=== PATIENT | female | born 1940 | race Caucasian/White ===

== ENCOUNTER 2021-11-14 09:23 | Observation (INO) | payer MEDICARE, SELFPAY ==
--- NOTE | ~2021-11-14 | CT_ITS ---
EXAMINATION: CT ANGIOGRAM NECK WITH CONTRAST CT ANGIOGRAM BRAIN WITH CONTRAST CLINICAL INFORMATION: Right-sided weakness. COMPARISON: None available. TECHNIQUE: Test bolus sequences followed by intravenous administration 70 mL of Omnipaque 350. Helical imaging was performed in the axial plane from the thoracic inlet to the skull vertex. Delayed postcontrast imaging of the head was also performed. The data was processed at the seating and mobility technologist workstation for generation of MIP sequences. Angled MIPs and volume rendered reformatted images were also generated at an offline 3D workstation under concurrent supervision. Stenoses are assessed in accordance with NASCET criteria unless otherwise indicated. This CT examination was performed using dose optimization techniques as appropriate, variously including the following: *Automated exposure control *Adjustment of mA and/or kV according to patient size (this includes techniques or standardized protocols for targeted exams where dose is matched to indication/reason for exam; i.e. extremities or head) *Use of iterative reconstruction technique FINDINGS: BRAIN: There is mild chronic microangiopathy. [There is no intracranial hemorrhage, hydrocephalus, extra-axial surface collection, midline shift, or other herniation pattern. Gutierrez to white matter differentiation is diffusely maintained without evidence of an evolved acute territorial infarct. The basilar cisterns are preserved. No significant soft tissue abnormality. No acute osseous abnormality. 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 CERVICAL SOFT TISSUES AND LUNG APICES: Advanced cervical spondylosis. 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 Left vertebral artery is dominant. No significant ostial stenosis is visualized on either side. Both vertebral arteries are widely patent throughout their extracranial cervical course. Right carotid endarterectomy changes. The right internal carotid artery approximately a slightly irregular the remains widely patent. There is atherosclerotic calcification involving the left carotid bifurcation resulting in a 50% stenosis of the distal left common carotid artery and a less than 50% stenosis of the proximal left cervical ICA. BRAIN CTA: There is a -type BIOMEDICAL SCIENTIST on the right side. No focal flow-limiting stenosis nor discrete proximal large artery occlusion. No aneurysm. Timing of the contrast bolus allows assessment of the major dural venous sinuses, which all opacify normally] CT/CT angio head neck stroke IMPRESSION: - No acute intracranial findings. No acute territorial infarcts. There is mild chronic microangiopathy. Favored artifact within the abhi on the noncontrast portion of this CT that would be better assessed with MRI. - No acute arterial occlusions intracranially. - Right carotid endarterectomy changes. The right internal carotid artery approximately a slightly irregular the remains widely patent. There is atherosclerotic calcification involving the left carotid bifurcation resulting in a 50% stenosis of the distal left common carotid artery and a less than 50% stenosis of the proximal left cervical ICA. - Advanced cervical spondylosis. If there is any clinical concern for cervical myelopathy or radiculopathy as a cause for right-sided weakness, a cervical spine MRI could be obtained for further assessment. 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 Discussed with Fariba Jorgensen DO at 9:59 AM on 11/14/2021.
--- NOTE | ~2021-11-14 | CT_ITS ---
EXAMINATION: CT HEAD WITHOUT CONTRAST (STROKE PROTOCOL) CLINICAL INFORMATION: Stroke protocol. Right-sided weakness COMPARISON: None TECHNIQUE: Contiguous axial imaging was performed from the skull base to vertex without intravenous administration of contrast. This CT examination was performed using dose optimization techniques as appropriate, variously including the following: *Automated exposure control *Adjustment of mA and/or kV according to patient size (this includes techniques or standardized protocols for targeted exams where dose is matched to indication/reason for exam; i.e. extremities or head) *Use of iterative reconstruction technique DLP: 762 mGy-cm FINDINGS: There is no evidence of an extra-axial collection. There is no evidence of intra-axial or extra-axial hemorrhage. The ventricles and extra-axial CSF spaces are appropriate. There is mild nonspecific periventricular white matter disease. There is low-attenuation seen in the left side of the brainstem/abhi for example axial image 22 series 2. It is uncertain whether this is related to artifact or a true finding. This could be better evaluated with MRI. Review at bone windows is normal. Paranasal sinuses, mastoid air cells and middle ears are clear. CT/CT head for stroke IMPRESSION: Small area of low attenuation in the left side of the brainstem. It is uncertain whether this is related to artifact. This could be better evaluated by MRI if clinically indicated. This critical result was discussed with Dr. Jorgensen at 945 hours on 11/14/2021. It was ascertained that the content and urgency of the report was understood at the time of direct communication.
--- NOTE | 2021-11-14 09:27 | ECG_ITS ---
Test Reason : stroke Blood Pressure : / mmHG Vent. Rate : 073 BPM Atrial Rate : 073 BPM P-R Int : 172 ms QRS Dur : 078 ms QT Int : 408 ms P-R-T Axes : 033 020 030 degrees QTc Int : 449 ms Normal sinus rhythm Normal ECG No previous ECGs available Referred By: Norma Valero Electronically Signed By:ROLAND HAYNES
[2021-11-14 09:30] LABS: Glucose, Whole Blood 84 mg/dL (60-115)
--- NOTE | 2021-11-14 09:31 | ED.NEUROSD ---
HPI - Neuro Symptoms/Deficit General Chief Complaint: Altered Mental Status Stated Complaint: ? Stroke Time Seen by Provider: 11/14/21 09:26 Source: patient and family Mode of arrival: other (stretcher from main room) Limitations: other (poor historian, attempting to get records from [facility]) History of Present Illness HPI Narrative: left [facility] 10/18 for possible TIA - similar symptoms unsure if she had tPa, son states she had MRIs and was not told she had a stroke. 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) Timing confirmed by: family member Location: speech and right arm History of same: Yes (seems similar to visit at [facility] but told she did not have a stroke) Severity: moderate Quality: weak and improving Relieving factors: rest Exacerbating factors: none Context: sudden onset On Anticoagulants: No Associated symptoms: malaise and weakness Treatments Prior to Arrival: none Related Data Home Medications Medication Instructions Recorded Confirmed aspirin 81 mg tablet,delayed 81 mg PO DAILY 11/14/21 11/14/21 release atorvastatin 80 mg tablet 1 tab PO DAILY 11/14/21 11/14/21 ezetimibe 10 mg tablet 1 tab PO DAILY 11/14/21 11/14/21 lisinopril 40 mg tablet 1 tab PO DAILY 11/14/21 11/14/21 methenamine hippurate 1 gram tablet 1 tab PO BID 11/14/21 11/14/21 metoprolol tartrate 50 mg tablet 1 tab PO BID 11/14/21 11/14/21 nystatin-triamcinolone 100,000 1 appl TOPICAL DAILY 11/14/21 11/14/21 unit/gram-0.1 % topical ointment Allergies Allergy/AdvReac Type Severity Reaction Status Date / Time Penicillins Allergy Rash Verified 11/14/21 10:12 sulfamethoxazole Allergy Unknown Verified 11/14/21 10:12 [From Bactrim] trimethoprim Allergy Rash Verified 11/14/21 10:12 acetaminophen AdvReac Unknown Verified 11/14/21 10:12 azithromycin AdvReac Swelling Verified 11/14/21 10:12 ciprofloxacin AdvReac Swelling Verified 11/14/21 10:12 clarithromycin AdvReac Swelling Verified 11/14/21 10:12 clindamycin AdvReac Swelling Verified 11/14/21 10:12 hydrocodone AdvReac Nausea Verified 11/14/21 10:12 morphine AdvReac Vomiting Verified 11/14/21 10:12 Review of Systems Review of Systems: Constitutional : No Weight loss, No Fever, No Chills, No Fatigue, No Malaise ENT/Mouth : No sore throat, No Rhinorrhea Eyes: No Eye Pain, No Swelling, No Redness Cardiovascular : No Chest Pain, No SOB, No Dyspnea on Exertion, No Orthopnea, No Edema, No Palpitations Respiratory : No Cough, No Sputum, No Wheezing Gastrointestinal : No Nausea, No Vomiting, No Diarrhea, No Constipation, No abdominal Pain, No Hematochezia, No Melena Genitourinary : No Dysuria, No Urinary Frequency, No Hematuria, Musculoskeletal : No joint pain, No Myalgias, No Joint Swelling Skin : No Skin Lesions, No rash Neuro : pos Weakness, No Numbness, No Dizziness, No Headache Psych : No Anxiety/Panic, No Depression Heme/Lymph: No Bruising, No Bleeding,No Lymphadenopathy Endocrine : No Polyuria, No Polydipsia All other systems reviewed and are negative [facility] Past Medical History Attestation statement: The following information was validated with the patient. Medical History Carotid artery stenosis Hiatal hernia HTN (hypertension) TIA (transient ischemic attack) Surgical History (Updated 11/14/21 @ 10:20 by Fariba Jorgensen DO) H/O carotid endarterectomy Previous back surgery Stented coronary artery Social History Social History (Updated 11/14/21 @ 10:20 by Fariba Jorgensen DO) Patient Tobacco Use Status: Never used Tobacco Advance Directives: Yes Advance Directives Information Provided: No Advance Directives on File: No Physical Exam Vital Signs: Vital Signs: Last Vital Signs Temp 98.4 F 11/14/21 09:57 Pulse 71 11/14/21 09:57 Resp 16 11/14/21 09:57 BP 176/76 H 11/14/21 09:57 Pulse Ox 97 11/14/21 09:57 BMI result Body Mass Index 21.9 Appearance: Alert. Oriented X3. Anxious mild acute distress. Eyes: Pupils equal, round and reactive to light. ENT: Pharynx normal. Neck: Normal inspection. Neck supple. CVS: Normal heart rate and rhythm. Pulses normal. Respiratory: No respiratory distress. Breath sounds normal. Abdomen: Soft and nontender. Skin: Skin warm and dry. Normal skin color. Normal skin turgor. Extremities: No lower extremity edema. No calf ttp Neuro: Oriented X 3. RUE 4/5, slurred speech. No sensory deficit. Course Course Course Narrative: speech drastically improved at this time BP 206/96 laying flat given possible carotid stenosis symptoms improving strength intact, NIH initially mild and rapidly improving on arrival I am waiting to hear if she had tPa at [facility] and also may have had recent stroke at [facility] given possible hypoattenuation in abhi given this information and mild NIH score I am holding tPa at this time. symptoms resolved at this time - NIH 0 BP 160 after one dose of labetalol CTA no LVO - no critical carotid artery stenosis symptoms resolved - will admit for TIA patient already took ASA this AM MDM - Neuro Symptoms/Deficit MDM Narrative Medical decision making narrative: 81 yo female with hx of TIA, HTN, carotid artery stenosis s/p R endarterectomy 2018 comes was coming to [facility] today for radiology appointment/neurology post visit at [facility] with recent TIA workup DC 10/18. Son unsure if she had tPa but was told MRI did not show a stroke. At this time she tells us she was told her L carotid is becoming more clogged. Her BS is 84. She was sent immediately to CT scan for stroke protocol. [facility] records obtained. Her symptoms are improving on arrival rapidly. She was placed in supine position until confirmed she did not have critical carotid artery stenosis. Her BP is very high > 200 on arrival given low dose labetalol she states she took all of her medications this AM. Lab Data Result diagrams: 11/14/21 09:30 11/14/21 09:30 Labs: Lab Results 11/14/21 11/14/21 11/14/21 Range/Units 09: 09:30 09:30 WBC 7.3 (4.8-10.8) X10*3/uL RBC 4.00 L (4.20-5.50) X10*6/uL Hgb 12.9 (12.0-16.0) g/dl Hct 38.4 (37.0-47.0) % MCV 96.0 (80.0-98.0) fL MCH 32.3 (27.0-33.0) pg MCHC 33.6 (31.0-35.0) g/dl RDW 12.8 (11.0-16.0) % Plt Count 241 (160-400) X10*3/uL MPV 9.9 (9.4-12.3) fL Immature Gran % (Auto) 0.3 (0.0-0.4) % Neut % (Auto) 63.3 (45-73) % Lymph % (Auto) 21.1 (20-40) % Colbert % (Auto) 9.8 (2-11) % Eos % (Auto) 5.1 H (0-4) % Baso % (Auto) 0.4 (0-2) % Lymph # (Auto) 1.5 (1.2-4.9) X10*3/uL Colbert # (Auto) 0.7 (0.1-1.2) X10*3/uL Eos # (Auto) 0.4 (0.0-0.4) X10*3/uL Baso # (Auto) 0.0 (0.0-0.2) X10*3/uL Abs Immat Gran (auto) 0.02 (0.00-0.03) X10*3/uL Absolute Neuts (auto) 4.6 (2.0-8.3) x10*3/uL Absolute Nucleated RBC 0.000 (0.0-0.012) X10*3/uL Nucleated RBC % (auto) 0.0 (0.0-0.2) /100WBC PT (9.9-13.0) SEC Whole Blood PT (11.1-13.5) sec INR (0.9-1.1) Whole Blood INR (0.9-1.1) APTT (24.1-38.0) SEC Sodium 141 (135-145) mmol/L Potassium 4.1 (3.3-5.1) mmol/L Chloride 107 (96-108) mmol/L Carbon Dioxide 28 (22-29) mmol/L Anion Gap 10 L (12-20) BUN 12 (9-16) mg/dL Creatinine 0.80 (0.5-1.4) mg/dL Estim Creat Clear Calc TNP Estimated GFR > 60 POC Glucose 84 (60-115) mg/dL Random Glucose 85 (60-115) mg/dL Calcium 9.9 (8.4-10.2) mg/dL Magnesium 1.9 (1.6-2.6) mg/dL Total Bilirubin 0.9 (0.0-1.0) mg/dL Direct Bilirubin 0.4 (0.0-0.5) mg/dL AST 22 (5-31) U/L ALT 17 (0-31) U/L Alkaline Phosphatase 74 (39-117) U/L Troponin I High Sens (<3.5-17.0) ng/L Total Protein 6.8 (6.5-8.0) g/dL Albumin 3.9 (3.5-5.0) g/dL Urine Color Urine Appearance Urine pH (5.0-8.0) Ur Specific [place] (1.005-1.025) Urine Protein (NEG-TRACE) MG/DL Urine Glucose (UA) (NEG) MG/DL Urine Ketones (NEG) MG/DL Urine Blood (NEG) Urine Nitrite (NEG) Ur Leukocyte Esterase (NEG) COVID-19 (LIZY) (Negative) COVID-19 Clin Com 11/14/21 11/14/21 11/14/21 Range/Units 09:30 09:30 09:32 WBC (4.8-10.8) X10*3/uL RBC (4.20-5.50) X10*6/uL Hgb (12.0-16.0) g/dl Hct (37.0-47.0) % MCV (80.0-98.0) fL MCH (27.0-33.0) pg MCHC (31.0-35.0) g/dl RDW (11.0-16.0) % Plt Count (160-400) X10*3/uL MPV (9.4-12.3) fL Immature Gran % (Auto) (0.0-0.4) % Neut % (Auto) (45-73) % Lymph % (Auto) (20-40) % Colbert % (Auto) (2-11) % Eos % (Auto) (0-4) % Baso % (Auto) (0-2) % Lymph # (Auto) (1.2-4.9) X10*3/uL Colbert # (Auto) (0.1-1.2) X10*3/uL Eos # (Auto) (0.0-0.4) X10*3/uL Baso # (Auto) (0.0-0.2) X10*3/uL Abs Immat Gran (auto) (0.00-0.03) X10*3/uL Absolute Neuts (auto) (2.0-8.3) x10*3/uL Absolute Nucleated RBC (0.0-0.012) X10*3/uL Nucleated RBC % (auto) (0.0-0.2) /100WBC PT 12.1 (9.9-13.0) SEC Whole Blood PT 12.2 (11.1-13.5) sec INR 1.1 (0.9-1.1) Whole Blood INR 1.0 (0.9-1.1) APTT 31.7 (24.1-38.0) SEC Sodium (135-145) mmol/L Potassium (3.3-5.1) mmol/L Chloride (96-108) mmol/L Carbon Dioxide (22-29) mmol/L Anion Gap (12-20) BUN (9-16) mg/dL Creatinine (0.5-1.4) mg/dL Estim Creat Clear Calc Estimated GFR POC Glucose (60-115) mg/dL Random Glucose (60-115) mg/dL Calcium (8.4-10.2) mg/dL Magnesium (1.6-2.6) mg/dL Total Bilirubin (0.0-1.0) mg/dL Direct Bilirubin (0.0-0.5) mg/dL AST (5-31) U/L ALT (0-31) U/L Alkaline Phosphatase (39-117) U/L Troponin I High Sens < 3.5 (<3.5-17.0) ng/L Total Protein (6.5-8.0) g/dL Albumin (3.5-5.0) g/dL Urine Color Urine Appearance Urine pH (5.0-8.0) Ur Specific [place] (1.005-1.025) Urine Protein (NEG-TRACE) MG/DL Urine Glucose (UA) (NEG) MG/DL Urine Ketones (NEG) MG/DL Urine Blood (NEG) Urine Nitrite (NEG) Ur Leukocyte Esterase (NEG) COVID-19 (LIZY) (Negative) COVID-19 Clin Com 11/14/21 11/14/21 Range/Units 10:05 10:33 WBC (4.8-10.8) X10*3/uL RBC (4.20-5.50) X10*6/uL Hgb (12.0-16.0) g/dl Hct (37.0-47.0) % MCV (80.0-98.0) fL MCH (27.0-33.0) pg MCHC (31.0-35.0) g/dl RDW (11.0-16.0) % Plt Count (160-400) X10*3/uL MPV (9.4-12.3) fL Immature Gran % (Auto) (0.0-0.4) % Neut % (Auto) (45-73) % Lymph % (Auto) (20-40) % Colbert % (Auto) (2-11) % Eos % (Auto) (0-4) % Baso % (Auto) (0-2) % Lymph # (Auto) (1.2-4.9) X10*3/uL Colbert # (Auto) (0.1-1.2) X10*3/uL Eos # (Auto) (0.0-0.4) X10*3/uL Baso # (Auto) (0.0-0.2) X10*3/uL Abs Immat Gran (auto) (0.00-0.03) X10*3/uL Absolute Neuts (auto) (2.0-8.3) x10*3/uL Absolute Nucleated RBC (0.0-0.012) X10*3/uL Nucleated RBC % (auto) (0.0-0.2) /100WBC PT (9.9-13.0) SEC Whole Blood PT (11.1-13.5) sec INR (0.9-1.1) Whole Blood INR (0.9-1.1) APTT (24.1-38.0) SEC Sodium (135-145) mmol/L Potassium (3.3-5.1) mmol/L Chloride (96-108) mmol/L Carbon Dioxide (22-29) mmol/L Anion Gap (12-20) BUN (9-16) mg/dL Creatinine (0.5-1.4) mg/dL Estim Creat Clear Calc Estimated GFR POC Glucose (60-115) mg/dL Random Glucose (60-115) mg/dL Calcium (8.4-10.2) mg/dL Magnesium (1.6-2.6) mg/dL Total Bilirubin (0.0-1.0) mg/dL Direct Bilirubin (0.0-0.5) mg/dL AST (5-31) U/L ALT (0-31) U/L Alkaline Phosphatase (39-117) U/L Troponin I High Sens (<3.5-17.0) ng/L Total Protein (6.5-8.0) g/dL Albumin (3.5-5.0) g/dL Urine Color STRAW Urine Appearance CLEAR Urine pH 6.5 (5.0-8.0) Ur Specific [place] <= 1.005 (1.005-1.025) Urine Protein NEG (NEG-TRACE) MG/DL Urine Glucose (UA) NEG (NEG) MG/DL Urine Ketones NEG (NEG) MG/DL Urine Blood NEG (NEG) Urine Nitrite NEG (NEG) Ur Leukocyte Esterase NEG (NEG) COVID-19 (LIZY) Negative (Negative) COVID-19 Clin Com See Note ECG Data Attestation: I personally reviewed and interpreted this ECG as follows: ECG interpretation date: 11/14/21 ECG interpretation time: 10:13 Interpretation: Rate: 73 Rhythm: NSR Roxana: normal Normal P waves. Normal TAYLOR. Normal QRS complex. ST T wave : normal no CHIN qTC: normal prior studies: no acute ischemia The study has been interpreted contemporaneously by me. NIH Stroke Scale Internal: Initial- Upon Arrival Level of Consciousness: Alert Level of Consciousness Questions: Answers both questions correctly Level of Consciousness Commands: Performs both tasks correctly Best Gaze: Normal Visual: No visual loss Facial Palsy: Normal Motor Arm (Right): Drift Motor Arm (Left): No drift Motor Leg (Right): No drift Motor Leg (Left): No drift Limb Ataxia: Absent Sensory: Normal Best Language: No aphasia Dysarthia: Severe dysarthria Extinction and Inattention: No abnormality Score: 3 Critical Care Time Critical Care Time Critical Care Time: Yes Total Critical Care Time: 45 Attestation: review of records, stroke protocol, IV labetalol, rapid reassessments, admission I attest to this time spent taking care of the patient Discharge Plan Discharge Clinical Impression: Brain TIA HTN (hypertension) Qualifiers: Hypertension type: unspecified Qualified Code(s): I10 - Essential (primary) hypertension Patient Disposition: Admitted As Inpatient
[2021-11-14 09:36] LABS: Prothrombin Time Whole Bld POC 12.2 sec (11.1-13.5)
[2021-11-14 09:40] LABS: MANUAL DIFF FLAG NO
[2021-11-14 09:42] LABS: Basophils Percent Auto 0.4 % (0-2); Eosinophils Absolute Auto 0.4 X10*3/uL (0.0-0.4); Eosinophils Percent Auto 5.1 % (0-4); Hematocrit 38.4 % (37.0-47.0); Hemoglobin 12.9 g/dl (12.0-16.0); Imm Gran Abs Auto 0.02 X10*3/uL (0.00-0.03); Imm Gran Pct Auto 0.3 % (0.0-0.4); Lymphocytes Absolute Auto 1.5 X10*3/uL (1.2-4.9); Lymphocytes Percent Auto 21.1 % (20-40); Mean Corpuscular HGB Conc 33.6 g/dl (31.0-35.0); Mean Corpuscular Hemoglobin 32.3 pg (27.0-33.0); Mean Platelet Volume 9.9 fL (9.4-12.3); Monocytes Absolute Auto 0.7 X10*3/uL (0.1-1.2); Monocytes Percent Auto 9.8 % (2-11); Neutrophils Absolute Auto 4.6 x10*3/uL (2.0-8.3); Neutrophils Percent Auto 63.3 % (45-73); Platelet Count 241 X10*3/uL (160-400); Red Cell Distribution Width 12.8 % (11.0-16.0); White Blood Count 7.3 X10*3/uL (4.8-10.8)
[2021-11-14] MEDS: 0.9 % Sodium Chloride 1,000 ML 999 ML IV (09:47)
[2021-11-14] MEDS: Labetalol HCL 100 MG/20 ML VIAL 10 MG IVPUSH (09:47)
[2021-11-14 09:52] LABS: INTERNATIONAL NORM RATIO 1.1 (0.9-1.1); Prothrombin Time 12.1 SEC (9.9-13.0)
[2021-11-14 09:54] LABS: Partial Thromboplastin Time 31.7 SEC (24.1-38.0)
[2021-11-14 09:57] VITALS: BP 176/76; PULSE 71; RESP 16; TEMP 36.9; O2SAT 97; BMI 21.9
[2021-11-14 09:58] LABS: Alanine Aminotransferase 17 U/L (0-31); Albumin Level 3.9 g/dL (3.5-5.0); Alkaline Phosphatase 74 U/L (39-117); Anion Gap 10 (12-20); Aspartate Amino Transferase 22 U/L (5-31); Bilirubin Direct 0.4 mg/dL (0.0-0.5); Bilirubin Total 0.9 mg/dL (0.0-1.0); Blood Urea Nitrogen 12 mg/dL (9-16); Calcium 9.9 mg/dL (8.4-10.2); Carbon Dioxide 28 mmol/L (22-29); Chloride 107 mmol/L (96-108); Estimated Glomerular Filt Rate > 60; Glucose Random 85 mg/dL (60-115); Magnesium 1.9 mg/dL (1.6-2.6); Potassium 4.1 mmol/L (3.3-5.1); Sodium 141 mmol/L (135-145); Total Protein 6.8 g/dL (6.5-8.0)
[2021-11-14 10:01] LABS: Troponin-I High Sensitivity < 3.5 ng/L (<3.5-17.0)
--- NOTE | 2021-11-14 10:17 | PC.NURSE ---
Patient arrived to ER via outpatient response after arriving and having slurred speech/facial droop. Son at bedside reporting similar thing the month before. patient brought in for immediate CT scan. IV established by Anita ALCAZAR. Patient found to be hypertensive- 210/99 and 200/91. Hung NS 1L and medicated with Lobetalol per Dr. Jorgensen. patient tolerated well and pressure improved to 164/78. HR- 71. Patient moved form CT scan to room, remained laying flat. Alert and oriented, speech improved at this time. Skin PWD. On cardiac specialist NSR. Will continue to monitor.
--- NOTE | 2021-11-14 10:24 | MHC.STROKE ---
ARRIVED TO ED AT 0923, PATIENT HAD AN APPOINTMENT WITH DR. MATTA AN OP. COLLAPSED IN [facility] AND DIRECTED TO ED. STROKE PROTOCOL ACTIVATED. CTH, NO BLEED, CTA NO LVO. PATIENT HAS NEVER BEEN SEEN AT [facility]. OBTAINED SOME RECORDS FROM [facility], SHE WAS THERE 09/11/21-09/12/21. FOR SYNCOPE. RECORDS REVIEWED. PMH: CAD WITH STENT, BRADYCARDIA. CAROTID DISEASE, HTN, HLD, ANEMIA, GI BLEED, TIA, MEDICATION LIST INCLUDED IN RECORDS, ON ANTIHYPERTENSIVES, STATIN, ASPIRIN, ETC. THE SON RELAYED INFORMATION THAT HER MEDICATIONS HAVE BEEN CHANGED. AFTER THE STAY AT [facility], 3 WEEKS LATER SHE WAS ADMITTED TO [facility] AND I CONFIRMED WITH THE PROFESSIONAL NURSE THERE THAT SHE DID NOT RECEIVE TPA-ALTEPLASE AND HER MRI WAS NEGATIVE. WE ARE OBTAINING ADDITIONAL RECORDS FROM [facility]. I PROVIDED EDUCATION AND TO THE PATIENT AND HER SON HARLEY. I REVIEWED THE PLAN OF CARE AND GAVE THEM DR. MATTA'S OFFICE NUMBER AND THEY WILL NEED TO MAKE ANOTHER APPOINTMENT. UNSURE IF SHE WILL BE ADMITTED AT THIS TIME. DR HOANG IS REVIEWING THIS INFORMATION.
[2021-11-14 10:31] LABS: COVID-19 Test Negative (Negative); IDNOW Serial# 16C4AD1C
[2021-11-14 10:40] LABS: Appearance Urine CLEAR; Color Urine STRAW; Glucose Urine UA NEG (NEG); Leukocyte Esterase Urine NEG (NEG); Nitrite Urine NEG (NEG); PH 6.5 (5.0-8.0); Specific Gravity - Urine <= 1.005 (1.005-1.025); Urine Blood NEG (NEG); Urine Ketones NEG (NEG); Urine Protein NEG (NEG-TRACE)
--- NOTE | 2021-11-14 11:09 | PHA.MEDREC ---
Pharmacy Consult ? Medication Reconciliation Pharmacy has completed the medication reconciliation. No remarkable issues. Shy Jackson, AmyD
[2021-11-14 13:23] VITALS: BP 172/68; PULSE 57; RESP 16; O2SAT 97
--- NOTE | 2021-11-14 15:03 | PM.IMHP ---
History of Present Illness Date of Service: 11/14/21 Chief Complaint: right sided weakness, facial droop, dysarthria 81F pmh carotid stenosis, tias, presneted with right sided weakness, facial droop, and dysarthria. patient had been waiting to see neuro for outpaitent appt when she had onset of sudded right sided weakness, numbness, slurred speech. this was similar to several previous episdes ( for which her appointment was for). [place] [facility] [place], MRI which were negative, echo which showed diasotlic dysfunciton. CTA neck with 60% occulsion of LICA, 0% right (s/p CEA). patients symptoms quickly resolved. CTA was negative. denies chest pain, sob, fever, chills. she did report some headache with previous episdoes, though not this time. Review of Systems Review of Systems: Constitutional: Denies fever, denies Chills Eyes: denies blurry vision ENT: denies sore throat CVS: denies chest pain Respiratory: Denies dyspnea GI: no abdominal pain : denies dysuria MSK: denies neck pain Skin: denies rash Neuro: see hpi Psych: denies suicidal ideation Endocrine: denies heat/cold intolerance Hematologic: denies easy bleeding Allergy: denies hives [facility] Medical History CAD (coronary artery disease) Carotid artery stenosis Chronic diastolic (congestive) heart failure Hiatal hernia HTN (hypertension) S/p bare metal coronary artery stent TIA (transient ischemic attack) Family History Mother CAD (coronary artery disease) Father CAD (coronary artery disease) Surgical History H/O carotid endarterectomy Previous back surgery Stented coronary artery Social History Alcohol intake: never Patient Tobacco Use Status: Never used Tobacco Use of substances other than those prescribed or required for medical reasons: No Advance Directives: Yes Advance Directives Information Provided: No Advance Directives on File: Yes Advance Directives Date on File: 11/14/21 Meds Allergies Allergy/AdvReac Type Severity Reaction Status Date / Time Penicillins Allergy Rash Verified 11/14/21 10:12 sulfamethoxazole Allergy Unknown Verified 11/14/21 10:12 [From Bactrim] trimethoprim Allergy Rash Verified 11/14/21 10:12 acetaminophen AdvReac Unknown Verified 11/14/21 10:12 azithromycin AdvReac Swelling Verified 11/14/21 10:12 ciprofloxacin AdvReac Swelling Verified 11/14/21 10:12 clarithromycin AdvReac Swelling Verified 11/14/21 10:12 clindamycin AdvReac Swelling Verified 11/14/21 10:12 hydrocodone AdvReac Nausea Verified 11/14/21 10:12 morphine AdvReac Vomiting Verified 11/14/21 10:12 Active Medications: Current Medications Acetaminophen (Acetaminophen 325 Mg Tablet) 650 mg PO Q6H PRN PRN Reason: Pain, Mild (Pain Scale 1-3) Aspirin (Aspirin Enteric Coated 81 Mg Tablet.) 81 mg PO DAILY KATELYN Atorvastatin Calcium (Atorvastatin Calcium 80 Mg Tablet) 80 mg PO DAILY KATELYN Ezetimibe (Ezetimibe 10 Mg Tablet) 10 mg PO DAILY KATELYN Enoxaparin Sodium (Enoxaparin Sodium 40 Mg/0.4 Ml Syringe) 40 mg SUBCUT DAILY KATELYN Metoprolol Tartrate (Metoprolol Tartrate 50 Mg Tablet) 50 mg PO BID KATELYN; Protocol Non-Formulary Medication (Methenamine Hippurate) 1 tab PO BID KATELYN Nystatin/Triamcinolone Acetonide (Nystatin/Triamcinolone Oint 15 Gm Tube) 1 appl TOPICAL DAILY KATELYN; Protocol Pharmacy Consult (Consult Rx Perform Med Rec) 1 each MISCELLANE ONCE PRN PRN Reason: Consult order Home Medications Medication Instructions Recorded Confirmed Last Taken Type aspirin 81 mg tablet,delayed 81 mg PO DAILY 11/14/21 11/14/21 11/14/21 History release atorvastatin 80 mg tablet 1 tab PO DAILY 11/14/21 11/14/21 11/14/21 History ezetimibe 10 mg tablet 1 tab PO DAILY 11/14/21 11/14/21 11/14/21 History lisinopril 40 mg tablet 1 tab PO DAILY 11/14/21 11/14/21 11/14/21 History methenamine hippurate 1 gram tablet 1 tab PO BID 11/14/21 11/14/21 11/14/21 History metoprolol tartrate 50 mg tablet 1 tab PO BID 11/14/21 11/14/21 11/14/21 History nystatin-triamcinolone 100,000 1 appl TOPICAL DAILY 11/14/21 11/14/21 Unknown History unit/gram-0.1 % topical ointment Physical Exam Vital Signs and Narrative: Vital Signs: Last Vital Signs Temp 98.4 F 11/14/21 09:57 Pulse 57 11/14/21 13:23 Resp 16 11/14/21 13:23 BP 172/68 H 11/14/21 13:23 Pulse Ox 97 11/14/21 13:23 BMI result Body Mass Index 21.9 General: no acute distress HEENT: atraumatic Neck: normal to visual inspection CVS: S1, S2, RRR Resp: CTA bilateral Chest: non tender GI: soft, non tender, non distended : no CVA tenderness Skin: no rashes Extremities: no edema Neuro: Oriented X3, grossly intact Psych: cooperative Results Labs CBC and Chem 7: 11/14/21 09:30 11/14/21 09:30 Labs: Laboratory Results - last 24 hr 11/14/21 11/14/21 11/14/21 09:27 09:30 09:30 MCV 96.0 MCH 32.3 MCHC 33.6 RDW 12.8 Plt Count 241 MPV 9.9 Immature Gran % (Auto) 0.3 Neut % (Auto) 63.3 Lymph % (Auto) 21.1 [place] % (Auto) 9.8 Eos % (Auto) 5.1 H Baso % (Auto) 0.4 Lymph # (Auto) 1.5 [place] # (Auto) 0.7 Eos # (Auto) 0.4 Baso # (Auto) 0.0 Abs Immat Gran (auto) 0.02 Absolute Neuts (auto) 4.6 Absolute Nucleated RBC 0.000 Nucleated RBC % (auto) 0.0 PT Whole Blood PT INR Whole Blood INR APTT Anion Gap 10 L Estim Creat Clear Calc TNP Estimated GFR > 60 POC Glucose 84 Random Glucose 85 Calcium 9.9 Magnesium 1.9 Total Bilirubin 0.9 Direct Bilirubin 0.4 AST 22 ALT 17 Alkaline Phosphatase 74 Troponin I High Sens Total Protein 6.8 Albumin 3.9 Urine Color Urine Appearance Urine pH Ur Specific [place] Urine Protein Urine Glucose (UA) Urine Ketones Urine Blood Urine Nitrite Ur Leukocyte Esterase COVID-19 (LIZY) COVID-19 Clin Com 11/14/21 11/14/21 11/14/21 09:30 09:30 09:32 MCV MCH MCHC RDW Plt Count MPV Immature Gran % (Auto) Neut % (Auto) Lymph % (Auto) [place] % (Auto) Eos % (Auto) Baso % (Auto) Lymph # (Auto) [place] # (Auto) Eos # (Auto) Baso # (Auto) Abs Immat Gran (auto) Absolute Neuts (auto) Absolute Nucleated RBC Nucleated RBC % (auto) PT 12.1 Whole Blood PT 12.2 INR 1.1 Whole Blood INR 1.0 APTT 31.7 Anion Gap Estim Creat Clear Calc Estimated GFR POC Glucose Random Glucose Calcium Magnesium Total Bilirubin Direct Bilirubin AST ALT Alkaline Phosphatase Troponin I High Sens < 3.5 Total Protein Albumin Urine Color Urine Appearance Urine pH Ur Specific [place] Urine Protein Urine Glucose (UA) Urine Ketones Urine Blood Urine Nitrite Ur Leukocyte Esterase COVID-19 (LIZY) COVID-19 Clin Com 11/14/21 11/14/21 10:05 10:33 MCV MCH MCHC RDW Plt Count MPV Immature Gran % (Auto) Neut % (Auto) Lymph % (Auto) [place] % (Auto) Eos % (Auto) Baso % (Auto) Lymph # (Auto) [place] # (Auto) Eos # (Auto) Baso # (Auto) Abs Immat Gran (auto) Absolute Neuts (auto) Absolute Nucleated RBC Nucleated RBC % (auto) PT Whole Blood PT INR Whole Blood INR APTT Anion Gap Estim Creat Clear Calc Estimated GFR POC Glucose Random Glucose Calcium Magnesium Total Bilirubin Direct Bilirubin AST ALT Alkaline Phosphatase Troponin I High Sens Total Protein Albumin Urine Color STRAW Urine Appearance CLEAR Urine pH 6.5 Ur Specific [place] <= 1.005 Urine Protein NEG Urine Glucose (UA) NEG Urine Ketones NEG Urine Blood NEG Urine Nitrite NEG Ur Leukocyte Esterase NEG COVID-19 (LIZY) Negative COVID-19 Clin Com See Note Imaging Radiologist's Impressions: Impressions Head CT 11/14/21 09:36 IMPRESSION: Small area of low attenuation in the left side of the brainstem. It is uncertain whether this is related to artifact. This could be better evaluated by MRI if clinically indicated. This critical result was discussed with Dr. Jorgensen at 945 hours on 11/14/2021. It was ascertained that the content and urgency of the report was understood at the time of direct communication. Head/Neck CTA 11/14/21 09:44 IMPRESSION: - No acute intracranial findings. No acute territorial infarcts. There is mild chronic microangiopathy. Favored artifact within the abhi on the noncontrast portion of this CT that would be better assessed with MRI. - No acute arterial occlusions intracranially. - Right carotid endarterectomy changes. The right internal carotid artery approximately a slightly irregular the remains widely patent. There is atherosclerotic calcification involving the left carotid bifurcation resulting in a 50% stenosis of the distal left common carotid artery and a less than 50% stenosis of the proximal left cervical ICA. - Advanced cervical spondylosis. If there is any clinical concern for cervical myelopathy or radiculopathy as a cause for right-sided weakness, a cervical spine MRI could be obtained for further assessment. 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 Discussed with Fariba Jorgensen DO at 9:59 AM on 11/14/2021. 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
--- NOTE | 2021-11-14 15:06 | PC.NURSE ---
Patient resting on stretcher with son at bedside. patient states she feels like she is back to baseline. Patient is alert and oriented. Speech is clear, no facial droop noted. Respirations regular and even. Skin PWD. Patient up to the commode with one assist. Will continue to monitor. Plan is for admission.
--- NOTE | 2021-11-14 15:31 | P.CNNE_ITS ---
History of Present Illness Data of Consult Service Date: 11/14/21 Primary Care Provider: Karon Dave MD [facility] Reason for consult: Question stroke 81 years old woman who used to have migraine headaches in her 30s. She also had history of carotid disease status post right carotid endarterectomy, coronary artery disease and hypertension who recently was admitted in [facility] after an episode that she thought ws a minor stroke. in fact she had at least 2 more episodes of similar kind. During each episode she remember having numbness on right side of her body, which slowly spread it to involve her face and rest of the body in few minutes and then she also remembered having a headache that was not very severe. Last time headache lasted for few hours per there was also little bit of mental confusion as she noted that when she arrived home she missed her home and drove further and then came back and entered into her garage. Aside from this she had an episode in a sabianist when she was michael ding for a few minutes after which something happened to her. Apparently she fell down and passed out momentarily there was no convulsion and that episode was different from previous episodes. After this episode her director field services discontinued the medicine. According to her son, workup in [facility] was negative for stroke. Review of Systems Review of Systems: No recent cold or flu-like illness per [facility] Past Medical History Medical History CAD (coronary artery disease) Carotid artery stenosis Chronic diastolic (congestive) heart failure Hiatal hernia HTN (hypertension) S/p bare metal coronary artery stent TIA (transient ischemic attack) Family History Family History Mother CAD (coronary artery disease) Father CAD (coronary artery disease) Surgical History Surgical History H/O carotid endarterectomy Previous back surgery Stented coronary artery Social History Social History Alcohol intake: never Patient Tobacco Use Status: Never used Tobacco Use of substances other than those prescribed or required for medical reasons: No Advance Directives: Yes Advance Directives Information Provided: No Advance Directives on File: Yes Advance Directives Date on File: 11/14/21 Meds Allergies Allergy/AdvReac Type Severity Reaction Status Date / Time Penicillins Allergy Rash Verified 11/14/21 10:12 sulfamethoxazole Allergy Unknown Verified 11/14/21 10:12 [From Bactrim] trimethoprim Allergy Rash Verified 11/14/21 10:12 acetaminophen AdvReac Unknown Verified 11/14/21 10:12 azithromycin AdvReac Swelling Verified 11/14/21 10:12 ciprofloxacin AdvReac Swelling Verified 11/14/21 10:12 clarithromycin AdvReac Swelling Verified 11/14/21 10:12 clindamycin AdvReac Swelling Verified 11/14/21 10:12 hydrocodone AdvReac Nausea Verified 11/14/21 10:12 morphine AdvReac Vomiting Verified 11/14/21 10:12 Active Medications: Current Medications Acetaminophen (Acetaminophen 325 Mg Tablet) 650 mg PO Q6H PRN PRN Reason: Pain, Mild (Pain Scale 1-3) Aspirin (Aspirin Enteric Coated 81 Mg Tablet.) 81 mg PO DAILY KATELYN Atorvastatin Calcium (Atorvastatin Calcium 80 Mg Tablet) 80 mg PO DAILY KATELYN Ezetimibe (Ezetimibe 10 Mg Tablet) 10 mg PO DAILY KATELYN Enoxaparin Sodium (Enoxaparin Sodium 40 Mg/0.4 Ml Syringe) 40 mg SUBCUT DAILY KATELYN Metoprolol Tartrate (Metoprolol Tartrate 50 Mg Tablet) 50 mg PO BID KATELYN; Prot ocol Non-Formulary Medication (Methenamine Hippurate) 1 tab PO BID KATELYN Nystatin/Triamcinolone Acetonide (Nystatin/Triamcinolone Oint 15 Gm Tube) 1 appl TOPICAL DAILY KATELYN; Protocol Pharmacy Consult (Consult Rx Perform Med Rec) 1 each MISCELLANE ONCE PRN PRN Reason: Consult order Home Medications Medication Instructions Recorded Confirmed Last Taken Type aspirin 81 mg tablet,delayed 81 mg PO DAILY 11/14/21 11/14/21 11/14/21 History release atorvastatin 80 mg tablet 1 tab PO DAILY 11/14/21 11/14/21 11/14/21 History ezetimibe 10 mg tablet 1 tab PO DAILY 11/14/21 11/14/21 11/14/21 History lisinopril 40 mg tablet 1 tab PO DAILY 11/14/21 11/14/21 11/14/21 History methenamine hippurate 1 gram tablet 1 tab PO BID 11/14/21 11/14/21 11/14/21 History metoprolol tartrate 50 mg tablet 1 tab PO BID 11/14/21 11/14/21 11/14/21 History nystatin-triamcinolone 100,000 1 appl TOPICAL DAILY 11/14/21 11/14/21 Unknown History unit/gram-0.1 % topical ointment Physical Exam Vital Signs: Vital Signs: Last Vital Signs Temp 98.4 F 11/14/21 09:57 Pulse 57 11/14/21 13:23 Resp 16 11/14/21 13:23 BP 172/68 H 11/14/21 13:23 Pulse Ox 97 11/14/21 13:23 BMI result Body Mass Index 21.9 Neuro: Other: she was alert and awake with normal spontaneity of speech fluency comprehension and affect. Pupils were round reactive to light. Extraocular muscles were intact. Visual vergara are full to threat. Face was symmetrical. Tongue was midline. There was no pronator drift. [id number] revealed mild bilateral ataxia and [id number]-[id number] testing were normal. she was able to get up and walk in and cautious gait. Speech was normal. Results Labs CBC & Chem 7: 11/14/21 09:30 11/14/21 09:30 Labs: Short CBC 11/14/21 Range/Units 09:30 WBC 7.3 (4.8-10.8) X10*3/uL Hgb 12.9 (12.0-16.0) g/dl Hct 38.4 (37.0-47.0) % Plt Count 241 (160-400) X10*3/uL BMP 11/14/21 09:30 Sodium 141 Potassium 4.1 Chloride 107 Carbon Dioxide 28 BUN 12 Creatinine 0.80 Calcium 9.9 Liver Function 11/14/21 Range/Units 09:30 Total Bilirubin 0.9 (0.0-1.0) mg/dL Direct Bilirubin 0.4 (0.0-0.5) mg/dL AST 22 (5-31) U/L ALT 17 (0-31) U/L Alkaline Phosphatase 74 (39-117) U/L Albumin 3.9 (3.5-5.0) g/dL Urine 11/14/21 Range/Units 10:33 Urine Color STRAW Urine Appearance CLEAR Urine pH 6.5 (5.0-8.0) Ur Specific [place] <= 1.005 (1.005-1.025) Urine Protein NEG (NEG-TRACE) MG/DL Urine Glucose (UA) NEG (NEG) MG/DL CT and CTA of brain and neck did not reveal any significant lesion. Mild atrophy was noted. Assessment and Plan (1) Migraine with aura: Status: Acute 3 episodes that she reported involving right-sided numbness little bit of confusion and headache were more consistent with migraine with aura. She was educated about this condition. As this is happening more frequently, I suggest to start her on topiramate 25 mg at night. These episodes were not suggestive of stroke. Seizure disorder could be considered but overall history was also not suggestive of that. She can make an appointment in my office in few weeks time for follow-up (2) Migraine equivalent syndrome: Status: Acute (3) Syncope and collapse: Status: Acute this is about the episode she had in the sabianist, which probably happen from vasovagal or orthostatic syncope. Again seizure disorder was a possibility but seems less likely. An outpatient EEG can be considered. (4) Carotid disease, bilateral: Status: Acute this is not significant and asymptomatic. I recommend blood pressure management, anti-platelet agent and statin. Procedures Date of Service Date of Service: 11/14/21
[2021-11-14 18:05] VITALS: BP 195/78; PULSE 64; RESP 20; TEMP 36.7; O2SAT 96
[2021-11-14 18:12] VITALS: BP 185/76
--- NOTE | 2021-11-14 18:12 | PC.NURSE ---
Patient alert and oriented x 3. Patient denies headache, dizziness. Patient passed swallow eval. tele: sinus rythym 60's blood pressure 195/78 Dr. Hines notified. Neurology consult is done. MD aware of recommendations. Will continue with plan of care.
--- NOTE | 2021-11-14 18:22 | PM.DS ---
DS: Providers Provider Date of Service: 11/14/21 Date of admission: 11/14/21 14:54 Primary care physician: Karon Dave MD Consults: 11/14/21 14:52 Consult to Neurology Routine Consulting Provider: [facility] Reason for consultation: right facial droop, slurred speech DS: Diagnosis Discharge Diagnosis (1) Migraine with aura: Status: Acute (2) Migraine equivalent syndrome: Status: Acute (3) Syncope and collapse: Status: Acute (4) Carotid disease, bilateral: Status: Acute DS: Summary Hospital Course Hospital Course: from initial hpi:Chief Complaint: right sided weakness, facial droop, dysarthria 81F pmh carotid stenosis, tias, presneted with right sided weakness, facial droop, and dysarthria. patient had been waiting to see neuro for outpaitent appt when she had onset of sudded right sided weakness, numbness, slurred speech. this was similar to several previous episdes ( for which her appointment was for). [place] [facility] [place], [place] which were negative, echo which showed diasotlic dysfunciton. CTA neck with 60% occulsion of LICA, 0% right (s/p CEA). patients symptoms quickly resolved. CTA was negative. denies chest pain, sob, fever, chills. she did report some headache with previous episdoes, though not this time. hospital course: patient was observed for right sided weakness and slurred speech. her imaging was negative. she was seen by neuro who felt this was most consistent with migraine with aura. she will be started on topamax 25mg at bedtime and should follow up outpatient with neuro. bp is elevated, but asymptomatic, will continue with lisinopril, lopressor, should monitor at home and adjust with pcp if needed. discharge diagnosis: migraine with aura CAD carotid artery disease chronic diastolic chf HTN Time Spent with Patient Time attestation: Total time spent providing and/or coordinating discharge services: Discharge coordination time: Greater than 30 minutes Quality: Safe Use of Opioids Does Pt have an Active Cancer Diagnosis on the Problem List?: No Quality: Stroke Does the patient have a stroke diagnosis?: No Physical Exam Vital Signs: Vital Signs: Last Vital Signs Temp 98.0 F 11/14/21 18:05 Pulse 64 04/27/22 18:05 Resp 20 11/14/21 18:05 BP 185/76 H 11/14/21 18:12 Pulse Ox 96 11/14/21 18:05 BMI result Body Mass Index 21.9 General: AO X 2, no acute distress Resp: CTA bilateral, no accessory muscles used CVS: S1,S2,RRR GI: soft, non tender, non distended Neuro: motor grossly intact, alert Psych: appropriate affect, imapired insight DS: Data Data Completed and Pending Labs on day of discharge: Laboratory Results - last 24 hr 11/14/21 11/14/21 11/14/21 09:27 09:30 09:30 WBC 7.3 RBC 4.00 L Hgb 12.9 Hct 38.4 MCV 96.0 MCH 32.3 MCHC 33.6 RDW 12.8 Plt Count 241 MPV 9.9 Immature Gran % (Auto) 0.3 Neut % (Auto) 63.3 Lymph % (Auto) 21.1 [place] % (Auto) 9.8 Eos % (Auto) 5.1 H Baso % (Auto) 0.4 Lymph # (Auto) 1.5 [place] # (Auto) 0.7 Eos # (Auto) 0.4 Baso # (Auto) 0.0 Abs Immat Gran (auto) 0.02 Absolute Neuts (auto) 4.6 Absolute Nucleated RBC 0.000 Nucleated RBC % (auto) 0.0 PT Whole Blood PT INR Whole Blood INR APTT Sodium 141 Potassium 4.1 Chloride 107 Carbon Dioxide 28 Anion Gap 10 L BUN 12 Creatinine 0.80 Estim Creat Clear Calc TNP Estimated GFR > 60 POC Glucose 84 Random Glucose 85 Calcium 9.9 Magnesium 1.9 Total Bilirubin 0.9 Direct Bilirubin 0.4 AST 22 ALT 17 Alkaline Phosphatase 74 Troponin I High Sens Total Protein 6.8 Albumin 3.9 Urine Color Urine Appearance Urine pH Ur Specific [place] Urine Protein Urine Glucose (UA) Urine Ketones Urine Blood Urine Nitrite Ur Leukocyte Esterase COVID-19 (LIZY) COVID-19 Clin Com 11/14/21 11/14/21 11/14/21 09:30 09:30 09:32 WBC RBC Hgb Hct MCV MCH MCHC RDW Plt Count MPV Immature Gran % (Auto) Neut % (Auto) Lymph % (Auto) [place] % (Auto) Eos % (Auto) Baso % (Auto) Lymph # (Auto) [place] # (Auto) Eos # (Auto) Baso # (Auto) Abs Immat Gran (auto) Absolute Neuts (auto) Absolute Nucleated RBC Nucleated RBC % (auto) PT 12.1 Whole Blood PT 12.2 INR 1.1 Whole Blood INR 1.0 APTT 31.7 Sodium Potassium Chloride Carbon Dioxide Anion Gap BUN Creatinine Estim Creat Clear Calc Estimated GFR POC Glucose Random Glucose Calcium Magnesium Total Bilirubin Direct Bilirubin AST ALT Alkaline Phosphatase Troponin I High Sens < 3.5 Total Protein Albumin Urine Color Urine Appearance Urine pH Ur Specific [place] Urine Protein Urine Glucose (UA) Urine Ketones Urine Blood Urine Nitrite Ur Leukocyte Esterase COVID-19 (LIZY) COVID-19 Clin Com 11/14/21 11/14/21 10:05 10:33 WBC RBC Hgb Hct MCV MCH MCHC RDW Plt Count MPV Immature Gran % (Auto) Neut % (Auto) Lymph % (Auto) [place] % (Auto) Eos % (Auto) Baso % (Auto) Lymph # (Auto) [place] # (Auto) Eos # (Auto) Baso # (Auto) Abs Immat Gran (auto) Absolute Neuts (auto) Absolute Nucleated RBC Nucleated RBC % (auto) PT Whole Blood PT INR Whole Blood INR APTT Sodium Potassium Chloride Carbon Dioxide Anion Gap BUN Creatinine Estim Creat Clear Calc Estimated GFR POC Glucose Random Glucose Calcium Magnesium Total Bilirubin Direct Bilirubin AST ALT Alkaline Phosphatase Troponin I High Sens Total Protein Albumin Urine Color STRAW Urine Appearance CLEAR Urine pH 6.5 Ur Specific [place] <= 1.005 Urine Protein NEG Urine Glucose (UA) NEG Urine Ketones NEG Urine Blood NEG Urine Nitrite NEG Ur Leukocyte Esterase NEG COVID-19 (LIZY) Negative COVID-19 Clin Com See Note Discharge Plan Discharge Patient Disposition: Home, Self-Care Discharge Diagnosis: migraine Referrals: Karon Dave MD [Primary Care Provider] - 1 Week Discharge Medications: New topiramate 25 mg Tablet 25 mg PO BEDTIME Qty: 30 0RF Continued atorvastatin 80 mg tablet 1 tab PO DAILY 0RF methenamine hippurate 1 gram tablet 1 tab PO BID 0RF metoprolol tartrate 50 mg tablet 1 tab PO BID 0RF lisinopril 40 mg tablet 1 tab PO DAILY 0RF ezetimibe 10 mg tablet 1 tab PO DAILY 0RF aspirin 81 mg Tablet,Delayed Release (Dr/Ec) 81 mg PO DAILY 0RF nystatin-triamcinolone 100,000-0.1 unit/gram-% ointment 1 appl topical DAILY 0RF Discharge Orders: Discharge Order (Routine); Ordered 11/14/21 Ordered By: Darrell Hines Diet: advance to usual diet Activity on Discharge: As tolerated Stand Alone Forms: Patient Portal Discharge page Care Plan Goals: prevent further episodes Health Concerns: migraine Plan of Treatment: start topamax, continue asa and statin, follow up with neuro Assessment: see above
== END 2021-11-14 18:51 | disposition home or self-care (01) ==
LOC: HO.ED 12:20 → HO.EDOVER 15:13
PROVIDERS: Physician Assistant; Admitting Provider Internal Medicine; Emergency Provider Emergency Medicine; PCP Internal Medicine; Visit Provider Internal Medicine
DX: I50.32 Chronic diastolic (congestive) heart failure (principal); I11.0 Hypertensive heart disease with heart failure; I25.10 Atherosclerotic heart disease of native coronary artery without angina pectoris; G43.109 Migraine with aura, not intractable, without status migrainosus; R55 Syncope and collapse; I77.9 Disorder of arteries and arterioles, unspecified; D16.4 Benign neoplasm of bones of skull and face; M47.812 Spondylosis without myelopathy or radiculopathy, cervical region; Z20.822 Contact with and (suspected) exposure to COVID-19; Z95.5 Presence of coronary angioplasty implant and graft; Z98.890 Other specified postprocedural states; Z88.0 Allergy status to penicillin; Z88.2 Allergy status to sulfonamides; Z88.8 Allergy status to other drugs, medicaments and biological substances; Z79.82 Long term (current) use of aspirin; Z79.899 Other long term (current) drug therapy
CPT/HCPCS: 36415; 70450; 70496; 70498; 80048; 80076; 81003; 82947; 83735; 84484; 85025; 85610; 85730; 87635; 93005; 99219; 99284

== ENCOUNTER 2025-04-20 08:22 | Outpatient (AMB) | payer MEDICARE, SELFPAY ==
--- NOTE | 2025-04-20 08:27 | A.OFFVIS_ITS ---
Intake Visit Reasons: shooting pain on neck/skull Accompanied by: Son Allergies Penicillins Allergy (Verified 04/20/25 08:31) Rash sulfamethoxazole (From Bactrim) Allergy (Verified 04/20/25 08:) Unknown trimethoprim Allergy (Verified 04/20/25 08:31) Rash acetaminophen Adverse Reaction (Verified 04/20/25 08:31) Unknown azithromycin Adverse Reaction (Verified 04/20/25 08:31) Swelling ciprofloxacin Adverse Reaction (Verified 04/20/25 08:) Swelling clarithromycin Adverse Reaction (Verified 04/20/25 08:31) Swelling clindamycin Adverse Reaction (Verified 04/20/25 08:31) Swelling hydrocodone Adverse Reaction (Verified 04/20/25 08:) Nausea morphine Adverse Reaction (Verified 04/20/25 08:) Vomiting Medication List - Last Reconciled 04/20/25 by Jahaira Jain, [place] aspirin 81 mg PO DAILY atorvastatin 1 tab PO DAILY ezetimibe 1 tab PO DAILY hydrochlorothiazide 12.5 mg PO DAILY lisinopril 1 tab PO DAILY lorazepam 0.5 mg PO BEDTIME PRN methenamine hippurate 1 tab PO BID metoprolol tartrate 1 tab PO BID nitroglycerin 0.4 mg sublingual Q5M PRN nystatin-triamcinolone 100,000-0.1 unit/gram-% 1 appl topical DAILY topiramate 25 mg PO BID HPI Comments Details: 85-year-old right-handed woman with moderate amount of multiple bilateral embolic looking ishemic infarcts, 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 She was here with new symptom of shooting pains on the left side of face, which started about 3-4 weeks ago. She gets brief, shooting pains along left lower jaw, and occasionally across cheek, along with some numbness. No specific triggers identified, such as chewing, brushing teeth, or washing face. She notes some increased sensitivity to touch on left side of face. Pain occasionally disrupts sleep. Episodes of pain can happen few times a day, but not every day. Typical headaches are okay. No visual changes. [facility] Medical History CAD (coronary artery disease) Carotid artery stenosis Chronic diastolic (congestive) heart failure Hiatal hernia HTN (hypertension) S/p bare metal coronary artery stent TIA (transient ischemic attack) Surgical History H/O carotid endarterectomy Previous back surgery Stented coronary artery Family History Mother CAD (coronary artery disease) Father CAD (coronary artery disease) Social History Alcohol intake: never Patient Tobacco Use Status: Never used Tobacco Advance Directives Date on File: 11/14/21 Review of Systems Const Denies chills, Denies daytime sleepiness, Denies difficulty sleeping, Denies fatigue, Denies fever(s), Denies frequent falls, Reports headache(s), Denies increased appetite, Denies poor appetite, Denies snoring, Denies weakness, Denies weight gain and Denies weight loss Eyes Denies loss of vision ENT Denies vertigo, Denies dizziness and Reports headache(s) Card Denies chest pain at rest, Denies chest pain with activity, Denies syncope, Denies leg edema and Denies palpitations Resp Denies snoring GI Denies constipation, Denies heartburn, Denies diarrhea and Denies nausea Denies urinary frequency, Denies urinary incontinence and Denies urinary urgency Musc Denies abnormal gait, Denies numbness and Denies tingling Skin/Breast Denies dry skin and Denies rash Neuro Denies abnormal gait, Denies vertigo, Denies dizziness, Denies syncope, Denies frequent falls, Reports headache(s), Denies lack of coordination, Denies loss of vision, Denies memory loss, Denies numbness, Denies restless legs, Denies seizure-like activity, Denies tingling, Denies paresthesias, Denies tremor(s) and Denies weakness Psych Denies anxiety, Denies depression, Denies auditory hallucinations, Denies memory loss, Denies visual hallucinations and Denies suicidal ideation Endo Denies fatigue and Denies palpitations Physical Exam Const Other: General Appearance:? normal, in no acute distress. Skin:? no rashes, no significant birthmarks. Heart:? S1, S2 normal, no murmurs. Lungs:? clear anteriorly and posteriorly. Extremities:? no edema. Psych:? alert, oriented, cognitive function intact, cooperative with exam. Neuro Other: Mental Status:?Normal attention, orientation, memory and affect.? Cranial Nerves:?Pupils are equal, round and reactive to light. External occular muscles are intact. Visual vergara are full. Face is symmetrical. Facial sensations are normal. Tongue is midline. Palate elevates symmetrically. Shoulder shrugging is normal. Hearing to bedside conversation is normal. Motor Examination:?DTRs trace. Sensory Exam:?....? Coordination:?No ataxia,?no titubation.? Gait Exam: Cautious. Cerebellar Signs:?[id number]-[id number] is okay. Extrapyramidal System:?No tremor, rigidity with normal facial expressions.? Pronator Drift:?Not present.? Involuntary Movements:?No tremors seen.? Speech:?Normal.? Results Reviewed Results Reviewed: MRI brain WO at [facility] in Mar 2023: Multiple small b/l ischemic lesions MRI brain WO at [facility] in Sep 2021: multiple distinct b/o small embolic looking ischemic infarcts Routine EEG at [facility] in Sep 2021: intermittent left temp theta slowing CTA brain and neck at [facility] in Oct 2021: MVD, s/p R CEA, 50% L stenosis, advanced cervical spondylosis, left frontal osteoma, 1.3 cm EKG at [facility] in Oct 2021: NSR. Assessment & Plan Assessment & Plan (1) Migraine equivalent syndrome: Code(s): G43.109 - Migraine with aura, not intractable, without status migrainosus Category: Medical Plan: Continue topiramate 25mg 1 tablet twice a day. (2) Migraine with aura: Code(s): G43.109 - Migraine with aura, not intractable, without status migrainosus Category: Medical Qualifiers: Status migrainosus presence: without status migrainosus Intractability: not intractable Qualified Code(s): G43.109 - Migraine with aura, not intractable, without status migrainosus (3) Trigeminal neuralgia: Code(s): G50.0 - Trigeminal neuralgia Category: Medical Plan: Likely trigeminal neuralgia given location (V2, V3 distribution) and nature of pain. Start carbamazepine 100mg 1 tablet at bedtime, use/side effects reviewed. MRI brain W&WO ordered, bring CD of MRI to next appointment for review. Plan . Orders: Orders MR head/brain wo/w con Today G50.0 - Trigeminal neuralgia Medications: New carbamazepine 100 mg PO BEDTIME 30 tabs 1RF 30 days Changed From topiramate 25 mg PO BID To topiramate 25 mg PO BID 180 tabs 1RF 90 days Coding Level of Care Code Est Pt Level 4 (69514) Diagnoses Migraine equivalent syndrome G43.109 Migraine with aura and without status migrainosus, not intractable G43.109 Status migrainosus presence: without status migrainosus Intractability: not intractable Trigeminal neuralgia G50.0
--- OUTSIDE RECORDS SUMMARY | 2025-04-20 08:54 | XMS_ITS | Clinical Summary ---
Author Organization [facility] [address] [place] [address] [place] [phone] Phone Care Team Providers Care Rug Shampooer Name Role Phone Karon Dave MD Primary Care Provider [phone] Allergies Active Allergy Reactions Criticality Noted Date Comments Amlodipine Swelling Medium 01/11/2016 Side effect Azithromycin 03/31/2013 Possibly caused vasculitis Ciprofloxacin 03/31/2013 Possibly caused vasculitis Clarithromycin 03/31/2013 Possibly caused vasculitis Clindamycin 03/31/2013 Possibly caused vasculitis Hydrocodone-Acetaminophe n Nausea And Vomiting 09/30/2005 Morphine Sulfate 09/11/2020 Penicillins Rash 09/30/2005 Sulfamethoxazole-Trimeth oprim Swelling Medium 06/18/2010 Tobramycin 03/31/2013 Possibly caused vasculitis Medications LORazepam (ATIVAN) 0.5 mg tablet TAKE 1 TABLET BY MOUTH EVERY DAY NEEDED ANXIETY 4 Active topiramate (TOPAMAX) 25 mg tablet Take 1 tablet (25 mg total) by mouth 2 (two) times a day. 3 Active nitroglycerin (NITROSTAT) 0.[address] 1 tablet (0.4 mg total) under the tongue every 5 (five) minutes if needed for chest pain. 3 Active methenamine hippurate (HIPREX) 1 gram tablet Take 1 g by mouth 2 Times Daily. 2 Active aspirin 81 mg chewable tablet Chew 1 tablet (81 mg total) 1 (one) time each day. 9 Active potassium chloride (KLOR-CON) 10 mEq CR tablet Take 1 tablet (10 mEq total) by mouth 1 (one) time each day. 90 tablet 1 5 Active metoprolol tartrate (LOPRESSOR) 50 mg tablet TAKE 1 TABLET BY MOUTH TWICE DAILY 180 tablet 1 5 Active lisinopril (PRINIVIL,ZESTR IL) 40 mg tablet TAKE 1 TABLET BY MOUTH ONCE DAILY 90 tablet 1 5 Active ezetimibe (ZETIA) 10 mg tablet Take 1 tablet (10 mg total) by mouth 1 (one) time each day. 90 tablet 1 5 Active atorvastatin (LIPITOR) 80 mg tablet Take 1 tablet (80 mg total) by mouth 1 (one) time each day. 90 tablet 1 5 Active nystatin-triamc inolone (MYCOLOG II) ointment Apply topically 1 (one) time each day. 15 g 1 5 Active hydroCHLOROthia zide 12.5 mg tablet Take 1 tablet (12.5 mg total) by mouth 1 (one) time each day. 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 Pulmonary nodules 06/05/2017 Overview (05/05/2024): Chest CT scan 06/02/2017 Hiatal hernia 07/31/2015 Overview (05/05/2024): Laparoscopic repair paraesophageal hernia, 02/21/2016 Squamous cell skin cancer 10/22/2012 Overview (05/05/2024): SCC 3/12 right cheek (in situ) Carotid stenosis 11/09/2010 Overview (05/05/2024): TIA times 2, Right CEA 7.20 Atherosclerosis of [place] ronary artery of [place] heart without angina pectoris 02/15/2008 Overview (05/05/2024): 85% LAD stenosis, coronary angioplasty, Assessment & Plan (12/20/2024 11:04 AM EDT): Diverticulitis of colon without hemorrhage 05/15 Overview (05/05/2024): refer to chronic blood loss anemia problem. Iron deficiency anemia secondary to blood loss ( chronic) 05/15/2006 Overview (05/05/2024): Microcytic, iron deficiency anemia associated with positive FOBT evaluated 2003. Upper GI endoscopy, colonoscopy, performed 07.16.04. Minimal diverticulosis lower half of the bowel. No other lesions. Duodenal biopsies not obtained. No colon cancer screening necessary until 2013. Hyperlipidemia 01/10/2006 Assessment & Plan (12/20/2024 11:04 AM EDT): Osteoporosis 06/12/2005 Assessment & Plan (12/20/2024 11:04 AM EDT): Primary hypertension 06/12/2005 Assessment & Plan (12/20/2024 11:04 AM EDT): Resolved Problems Problem Noted Date Diagnosed Date Resolved Date Low blood potassium 12/23/2023 06/21/20 24 Encounters Date Type Department Care Team Description 04/11/2025 11:15 AM EDT Office Visit Adult Medicine [address] [phone] Alessandra Jacobsen PA Left-sided face pain (Primary Dx); Refused pneumococcal vaccination 01/25/2025 11:30 AM EDT Treatment Outpatient [facility] - [address] [phone] Justice Mirza, PT Gait abnormality (Primary Dx) 01/20/2025 11:00 AM EDT Treatment Outpatient [facility] - [address] [phone] Marylou Vásquez, TEAM FACILITATOR Gait abnormality (Primary Dx) 01/18/2025 11:30 AM EDT Treatment Outpatient [address] [phone] Marylou Vásquez, TEAM FACILITATOR Gait abnormality (Primary Dx) from Last 3 Months Immunizations Immunization Administration Dates Next Due H1N1 Inj Preservative Free 07/11/2009 Influenza Quadravalent, MDCK , 0.5ml, with preservative (Flucelvax) 6mo and older 06/25/2017 Influenza trivalent, 0.5mL ( Fluad) 65yo and older 04/11/2025,04/04/2023,06/07/2022,05/01,04/12/2020,05/13/2019,04/12/2018 ,05/20/2016,05/05/2015,05/01/2014,04/21,05/06/2012,04/22/2011, 0,06/23/2009 Influenza trivalent, 0.5mL, preservative free (Fluarix; FluLaval; Fluzone) ages 6mo and older (Afluria) 3 years and older 05/20/2016,05/05/2015,05/01/2014,05/18,05/06/2012,04/22/2011,05/04/2010 ,06/23/2009,04/28/2008,04/29/2007,06/20,06/24/2005 Pfizer (ages 12 & older) Biv alent, COVID-19 04/08/2022 Pneumococcal polysaccharide 23 valent (Pneumovax 23) 2yo and older 06/12/2005 RSV, bivalent, protein subun it RSVpreF, 0.5mL, Preservative Free (Arexvy) 50yo and older 08/20/2023 Td Tetanus diptheria (Tdvax) 7yo and older 11/24/2017,02/16/2007 Zoster Live 05/03/2014 Surgical History Surgery Date Site/Laterality Comments OTHER SURGICAL HISTORY 2002 DISKECTOMY LUMBAR SINGLE SP COLONOSCOPY 07/16/2004 negative for +FOBT and anemia ESOPHAGOGASTRODUODENOSCOPY 07/16/2004 : negative for +FOBT and anemia OTHER SURGICAL HISTORY 01/05/2013 sinus surgery, Dr. Briseno TONSILLECTOMY UPPER GASTROINTESTINAL ENDOSCOPY 07/31/2015 7 cm paraesophageal hiatal hernia. COLONOSCOPY 08/02/2015 normal OTHER SURGICAL HISTORY 02/21/2016 Repair paraesophageal hernia CATARACT EXTRACTION 2017 Bilateral OTHER SURGICAL HISTORY 10/11/2009 LAPAROSCOPY COLPOPEXY SUSPENSION VAGINAL APEX; COMMENT: Dr. Ramirez CAROTID ENDARTERECTOMY 02/14/2020 : Dr. Jeong Medical History Medical History Date Comments Osteoporosis, unspecified Iron deficiency anemia secon anselmo to blood loss (chronic) 05/15/2006 Microcytic, iron deficiency anemia associated with positive FOBT evaluated 2003. Upper GI endoscopy, colonoscopy, performed 07.16.04. Minimal diverticulosis lower half of the bowel. No other lesions. Duodenal biopsies not obtained. No colon cancer screening necessary until 2013. Diverticulosis of colon (wit hout mention of hemorrhage) 05/15/2006 refer to chronic blood loss anemia problem. 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 tosis Migraine 06/09/[address] Bennett OZUNAID-19 virus infection 06/09/2023 3 Family History Medical History Relation Name Comments Stroke Brother 1 Coronary artery disease Brother 2 [place]'s Stroke Father Stroke Mother Stroke Sister Breast cancer Neg Hx Colon cancer Neg Hx Ovarian cancer Neg Hx Uterine cancer Neg Hx Relation Name Status Comments Brother 1 Brother 2 Alive Father Maternal Grandfather Maternal Grandmother Mother Paternal Grandfather Paternal Grandmother Sister Social History Tobacco Use Types Packs/Day Years Used Date Smoking Tobacco: Never Smokeless Tobacco: Never Tobacco Cessation:Counseling Given: Not Answered Alcohol Use Standard Drinks/Week Comments No 0 (1 standard drink = 0.6 oz pur e alcohol) Housing Instability Answer Date Recorde d Are you worried that in the next 2 months you may not have stable housing? No 12/20/2024 Food Access & Nutrition Answer Date Rec orded Do you have access to a vari ety of food including fruits and vegetables? Yes 12/20/2024 Access to Healthcare Answer Date Record ed Within the last 3 months, ho w many times did you visit the emergency department for your medical care? 0 12/20/2024 Health Literacy Answer Date Recorded How often do you need to hav e someone help you when you read instructions, pamphlets, or other written material from your doctor or pharmacy? Never 12/20/2024 Caregiver: How often do you need to have someone help you when you read instructions, pamphlets, or other written material from your doctor or pharmacy? Not on file 12/20/2024 Financial Risk Answer Date Recorded How hard is it for you to pa y for the very basics like food, housing, medical care, and air conditioning / heating? Not very hard 12/20/2024 Transportation Answer Date Recorded Has the lack of transportati on kept you from meetings, work, or from getting things needed for daily living? No Has the lack of transportati on kept you from medical appointments or from getting medications? No 12/20/2024 Social Isolation Answer Date Recorded How often do you feel lonely or isolated from th ose around you? Never 12/20/2024 Food Risk Answer Date Recorded Within the past 12 months we worried whether our food would run out before we got money to buy more. Never true 12/20/2024 Within the past 12 months th e food we bought just didn't last and we didn't have money to get more. Never true 12/20/2024 Dependent Care Answer Date Recorded Do you need help finding or paying for care for your loved ones. For example, child nutrition manager or elderly care for an older adult? No 12/20/2024 Education Answer Date Recorded Do you think completing more education or training, like finishing a GED, going to college, or learning a trade, would be helpful for you? N/A 12/20/2024 Employment and Income Answer Date Recor ded During the last four weeks, have you been actively looking for work? No 12/20/2024 Living Situation Answer Date Recorded What is your living situation? Unrecognized valu e 12/20/2024 Comments Unknown Sex and Gender Information Value Date Recorded Sex Assigned at Not on file Legal Sex Female 2:03 AM EST Gender Identity Not on file Sexual Orientation Not on file Obstetrics History Last Filed Vital Signs Vital Sign Reading Time Taken Comments Blood Pressure 135/63 04/11/2025 11:10 AM EDT Av erage Pulse 53 04/11/2025 11:10 AM EDT Temperature 36.3 C (97.3 F) 04/11/2025 11:07 AM EDT Respiratory Rate 18 04/11/2025 11:07 AM EDT Oxygen Saturation 99% 01/03/2025 11:00 AM EDT Inhaled Oxygen Concentration - - Weight 61.7 kg (136 lb) 04/11/2025 11:07 AM EDT Height 166.4 cm (5' 5.5 ) 04/11/2025 11:07 AM ED T Body Mass Index 22.29 04/11/2025 11:07 AM EDT Plan of Treatment Upcoming Encounters Date Type Department Care Team (Late st Contact Info) Description 06/28/2025 11:00 AM EST Office Visit Adult Medicine [facility] [address] [place], [place] [phone] Karon Dave MD [address] [place], [place] Health Maintenance Due Date Last Done Comments Pneumococcal Vaccine: 50+ Years (2 of 2 - PCV) 06/12/2006 06/12/2005 Zoster Vaccines (1 of 2) 06/28/2014 05/03/2014 Osteoporosis Screening (Bone Density Screening) 07/10/2024 07/10/2022, 05/26/2019 COVID-19 Vaccine ( season) 2025 01/15/2024, 04/08/2022, 05/21/2021, Additional history exists Hypertension/CHF/CAD Annual BMP Blood Test 09/16/2025 09/16/2024, 01/05/2024, 01/05/2024, Additional history exists Falls Risk Assessment 12/20/2025 12/20/2024 Medicare Annual Wellness Visit 12/20/2025 12/20/2024 Social Influencers of Health Screening 12/20/2025 12/20/2024 DTaP,Tdap,and Td Vaccines (3 - Td or Tdap) 11/25/2027 11/24/2017, 02/16/2007 Cholesterol Screening (Lipid Panel) 09/16/2029 09/16/2024, 06/09/2023 RSV Immunization Adult Patients Completed 08/20/2023 Depression Screening Completed 12/20/2024 Influenza Vaccine Completed 04/11/2025, , 06/07/2022, Additional history exists HIB Vaccines Aged Out No longer eligi ble based on patient's age to complete this topic HPV Vaccines Aged Out No longer eligi ble based on patient's age to complete this topic Hepatitis A Vaccines Aged Out No long er eligible based on patient's age to complete this topic Hepatitis B Vaccines Aged Out No long er eligible based on patient's age to complete this topic IPV Vaccines Aged Out No longer eligi ble based on patient's age to complete this topic MMR Vaccines Aged Out No longer eligi ble based on patient's age to complete this topic Meningococcal ACWY Vaccine Aged Out N o longer eligible based on patient's age to complete this topic Meningococcal B Vaccine Aged Out No l onger eligible based on patient's age to complete this topic RSV Immunization Patients Under 20 months Aged Out No longer eligible based on patient's age to complete this topic Varicella Vaccines Aged Out No longer eligible based on patient's age to complete this topic Procedures Procedure Name Priority Date/Time Associated Diagnosis Comments BASIC METABOLIC PANEL Routine 09/16/2024 2:26 PM EST Stage 3a chronic kidney disease (CMS/HCC V24, CMS/HCC V28) LIPID PANEL WITH REFLEX TO DIRECT LDL Routine 09/16/2024 2:26 PM EST Other hyperlipidemia DXA BONE DENSITY STUDY 1+ SITS AXIAL SKEL Routine 07/10/2022 3:03 PM EST Age-related osteoporosis without current pathological fracture from Last 3 Months or Most Recently Relevant to Health Maintenance Results * Lipid panel with reflex to direct LDL (09/16/2024 2:26 PM EST) Cholesterol 134 0 - 200 mg/dL LAB CHEMISTRY METHOD 09/16/2024 7:17 PM [facility] Triglycerides 126 0 - 150 mg/dL LAB CHEMISTRY METHOD 09/16/2024 7:17 PM [facility] HDL 52 >=40 mg/dL LAB CHEMISTRY METHOD 09/16/2024 7:17 PM [facility] LDL Calculated 57 0 - 100 mg/dL LAB CHEMISTRY METHOD 09/16/2024 7:17 PM [facility] VLDL Cholesterol Warren 25.2 mg/dL LAB CHEMISTRY METHOD 09/16/2024 7:17 PM [facility] Non HDL Chol. (LDL+VLDL) 82 <145 mg/dL LAB CHEMISTRY METHOD 09/16/2024 7:17 PM [facility] Chol/HDL Ratio 2.6 0.0 - 4.4 LAB CHEMISTRY METHOD 09/16/2024 7:17 PM [facility] Blood Venous blood specimen / Unknown Venipuncture / Unknown 09/16/2024 2:26 PM EST 09/16/2024 2:27 PM EST us Karon Dave MD LAB BLOOD ORDERABLES Final Resul t [facility] [address] [place] [address], * (ABNORMAL) Basic metabolic panel (09/16/2024 2:26 PM EST) Sodium 144 133 - 145 mmol/L LAB CHEMISTRY METHOD 09/16/2024 7:16 PM EST [facility] Potassium 3.5 3.5 - 5.5 mmol/L LAB CHEMISTRY METHOD 09/16/2024 7:16 PM [facility] Chloride 109 96 - 110 mmol/L LAB CHEMISTRY METHOD 09/16/2024 7:16 PM [facility] CO2 26 21 - 32 mmol/L LAB CHEMISTRY METHOD 09/16/2024 7:16 PM [facility] Anion Gap 9 3 - 11 LAB CHEMISTRY METHOD 09/16/2024 7:16 PM [facility] Glucose 77 70 - 100 mg/dL LAB CHEMISTRY METHOD 09/16/2024 7:16 PM [facility] BUN 25 5 - 25 mg/dL LAB CHEMISTRY METHOD 09/16/2024 7:16 PM [facility] Creatinine 1.00 0.50 - 1.10 mg/dL LAB CHEMISTRY METHOD 09/16/2024 7:16 PM [facility] eGFR 55(L) >=60 mL/min/1. 73m2 LAB CHEMISTRY METHOD 09/16/2024 7:16 PM [facility] Comment:Calculation based on the Chronic Kidney Disease Epidemiology Collaboration (CKD-EPI) equation refit without adjustment for race. BUN/Creatinine Ratio 25.0 LAB CHEMISTRY METHOD 09/16/2024 7:16 PM [facility] Calcium 9.8 8.5 - 10.5 mg/dL LAB CHEMISTRY METHOD 09/16/2024 7:16 PM EST [facility] Blood Venous blood specimen / Unknown Venipuncture / Unknown 09/16/2024 2:26 PM EST 09/16/2024 2:27 PM EST us Karon Dave MD LAB BLOOD ORDERABLES Final Resul t [facility] [address] [place] [address], * DXA BONE DENSITY STUDY 1+ SITS AXIAL SKEL (07/10/2022 3:03 PM EST) Anatomical Region Laterality Modality Bone Densitometr y 03/11/2022 4:0 7 PM EDT Narrative 07/10/2022 3:18 PM EST BONE DENSITY (DEXA) Lumbar Spine T-score is 0.7. (SD relative to 20-29 y/o adult) Z-score is 3.5. (SD relative to age matched peers) This is considered normal by WHO criteria. Left Hip T-score is -1.4. Z-score is 1.0. This is considered osteopenia by WHO criteria. Lateral view the spine demonstrates vertebral heights to be maintained. Impression grade 1 spondylolisthesis at L4-5 and L5-S1. IMPRESSION: This patient is considered to have osteopenia by WHO criteria. This patient has a 13% risk of major osteoporotic fracture and a 3.4% risk of hip fracture over the next 10 years. (World Health Organization Fracture Risk Assessment) [facility] Department of Internal Medicine recommends using National Osteoporosis Foundation (NOF) guidelines in treatment decisions related to osteoporosis. NOF guidelines suggest considering treatment for postmenopausal women and men aged 50 or older presenting with the following: History of hip or vertebral fracture. T-score = -2.5 (DXA) at the femoral neck, total hip, or spine, after appropriate evaluation to exclude secondary causes. Low bone mass (T-score between -1.0 and -2.5 at the femoral neck or spine) AND a 10-year probability of a hip fracture = 3% OR a 10-year probability of a major osteoporosis-related fracture = 20% based on the [place]-adapted WHO algorithm Please note that all treatment decisions require clinical judgment and consideration of individual patient factors, including patient preferences, co-morbidities, previous drug use, risk factors not captured in the FRAX model (e.g., frailty, falls, vitamin D deficiency, increased bone turnover, interval significant decline in bone density) and possible under- or over-estimation of fracture risk by FRAX. Optional alternative screening schedule based on butch Camacho., [facility] August 08, 2011 for patients with osteopenia (based on hip BMD T-score) is as follows: * advanced osteopenia (T scores -2.00 to -2.49), BMD testing every year * moderate osteopenia (T scores -1.50 to -1.99), BMD testing every 5 years mild osteopenia or normal BMD (T scores -1.50 and higher), BMD testing every 15 years Procedure Note Arleth Champion MD - 08/26/2023 BONE DENSITY (DEXA) Lumbar Spine T-score is 0.7. (SD relative to 20-29 y/o adult) Z-score is 3.5. (SD relative to age matched peers) This is considered normal by WHO criteria. Left Hip T-score is -1.4. Z-score is 1.0. This is considered osteopenia by WHO criteria. Lateral view the spine demonstrates vertebral heights to be maintained. Impression grade 1 spondylolisthesis at L4-5 and L5-S1. IMPRESSION: This patient is considered to have osteopenia by WHO criteria. Thispatient has a 13% risk of major osteoporotic fracture and a 3.4% risk of hip fracture over the next10 years. (World Health Organization Fracture Risk Assessment) [facility] Department of Internal Medicine recommendsusing National Osteoporosis Foundation (NOF) guidelines in treatment decisions related toosteoporosis. NOF guidelines suggest considering treatment for postmenopausal women and menaged 50 or older presenting with the following: History of hip or vertebral fracture. T-score = -2.5 (DXA) at the femoral neck, total hip, or spine, afterappropriate evaluation to exclude secondary causes. Low bone mass (T-score between -1.0 and -2.5 at the femoral neck or spine)AND a 10-year probability of a hip fracture = 3% OR a 10-year probability of a majorosteoporosis-related fracture = 20% based on the [place]-adapted WHO algorithm Please note that all treatment decisions require clinical judgment andconsideration of individual patient factors, including patient preferences, co- morbidities,previous drug use, risk factors not captured in the FRAX model (e.g., frailty, falls, vitaminD deficiency, increased bone turnover, interval significant decline in bone density) andpossible under- or over-estimation of fracture risk by FRAX. Optional alternative screening schedule based on butch Camacho., [facility] for patients with osteopenia (based on hip BMD T-score) is as follows: * advanced osteopenia (T scores -2.00 to -2.49), BMD testing every year * moderate osteopenia (T scores -1.50 to -1.99), BMD testing every 5years mild osteopenia or normal BMD (T scores -1.50 and higher), BMD testingevery 15 years Karon Dave MD IMG DXA PROCEDURES Final Result from Last 3 Months or Most Recently Relevant to Health Maintenance Insurance [employer] Care Teams Rug Shampooer Relationship Specialty Start Date End Date Karon Dave MD [address] [facility] [place] [phone] PCP - General Internal Medicine 01/19/20
--- OUTSIDE RECORDS SUMMARY | 2025-04-20 08:54 | XMS_ITS ---
Author Name [facility] Organization Unknown Care Team Organization Name Specialty Phone Email Start Date End Da te [facility] Karon Dave Primary Care 05/28/2022 4
== END 2025-04-20 08:55 | disposition home or self-care (01) ==
LOC: HO.HSM 08:23
PROVIDERS: PCP Internal Medicine; Visit Provider Registered Nurse
DX: G43.109 Migraine with aura, not intractable, without status migrainosus (principal); G50.0 Trigeminal neuralgia
CPT/HCPCS: 99214

== ENCOUNTER → 2025-04-20 08:22 | Outpatient (BNVA) | payer MEDICARE, SELFPAY | PROVIDERS: PCP Internal Medicine; Visit Provider Registered Nurse | DX: G50.0 Trigeminal neuralgia (principal); G43.109 Migraine with aura, not intractable, without status migrainosus | CPT/HCPCS: 99212 ==

== ENCOUNTER 2025-06-21 10:42 | Outpatient (AMB) | payer MEDICARE, SELFPAY ==
--- NOTE | 2025-06-21 11:24 | A.OFFVIS_ITS ---
Intake Visit Reasons: 6 month f/u Accompanied by: Family/Other Allergies Penicillins Allergy (Verified 06/21/25 11:26) Rash sulfamethoxazole (From Bactrim) Allergy (Verified 06/21/25 11:) Unknown trimethoprim Allergy (Verified 06/21/25 11:) Rash acetaminophen Adverse Reaction (Verified 06/21/25 11:26) Unknown azithromycin Adverse Reaction (Verified 06/21/25 11:) Swelling ciprofloxacin Adverse Reaction (Verified 06/21/25 11:) Swelling clarithromycin Adverse Reaction (Verified 06/21/25 11:26) Swelling clindamycin Adverse Reaction (Verified 06/21/25 11:) Swelling hydrocodone Adverse Reaction (Verified 06/21/25 11:) Nausea morphine Adverse Reaction (Verified 06/21/25 11:) Vomiting Medication List - Last Reconciled 06/21/25 by Jahaira Jain, [place] aspirin 81 mg PO DAILY atorvastatin 1 tab PO DAILY carbamazepine 100 mg PO BEDTIME ezetimibe 1 tab PO DAILY hydrochlorothiazide 12.5 mg PO DAILY lisinopril 1 tab PO DAILY lorazepam 0.5 mg PO BEDTIME PRN methenamine hippurate 1 tab PO BID metoprolol tartrate 1 tab PO BID nitroglycerin 0.4 mg sublingual Q5M PRN nystatin-triamcinolone 100,000-0.1 unit/gram-% 1 appl topical DAILY topiramate 25 mg PO BID 90 days HPI Comments Details: 85-year-old right-handed woman with moderate amount of 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 She was doing okay. She was taking topiramate twice a day and she was not having symptoms. No medication side effects. Balance was off at times, but no falls. Sleep was okay. She had brain MRI done in 04/2025 and she had CD with her to review. [facility] Medical History CAD (coronary artery disease) Carotid artery stenosis Chronic diastolic (congestive) heart failure Hiatal hernia HTN (hypertension) S/p bare metal coronary artery stent TIA (transient ischemic attack) Surgical History H/O carotid endarterectomy Previous back surgery Stented coronary artery Family History Mother CAD (coronary artery disease) Father CAD (coronary artery disease) Social History Alcohol intake: never Patient Tobacco Use Status: Never used Tobacco Advance Directives Date on File: 11/14/21 Review of Systems Const Denies chills, Denies daytime sleepiness, Denies difficulty sleeping, Denies fatigue, Denies fever(s), Denies frequent falls, Reports headache(s), Denies increased appetite, Denies poor appetite, Denies snoring, Denies weakness, Denies weight gain and Denies weight loss Eyes Denies loss of vision ENT Denies vertigo, Denies dizziness and Reports headache(s) Card Denies chest pain at rest, Denies chest pain with activity, Denies syncope, Denies leg edema and Denies palpitations Resp Denies snoring GI Denies constipation, Denies heartburn, Denies diarrhea and Denies nausea Denies urinary frequency, Denies urinary incontinence and Denies urinary urgency Musc Denies abnormal gait, Denies numbness and Denies tingling Skin/Breast Denies dry skin and Denies rash Neuro Denies abnormal gait, Denies vertigo, Denies dizziness, Denies syncope, Denies frequent falls, Reports headache(s), Denies lack of coordination, Denies loss of vision, Denies memory loss, Denies numbness, Denies restless legs, Denies seizure-like activity, Denies tingling, Denies paresthesias, Denies tremor(s) and Denies weakness Psych Denies anxiety, Denies depression, Denies auditory hallucinations, Denies memory loss, Denies visual hallucinations and Denies suicidal ideation Endo Denies fatigue and Denies palpitations Physical Exam Const Other: General Appearance:? normal, in no acute distress. Skin:? no rashes, no significant birthmarks. Heart:? S1, S2 normal, no murmurs. Lungs:? clear anteriorly and posteriorly. Extremities:? no edema. Psych:? alert, oriented, cognitive function intact, cooperative with exam. Neuro Other: Mental Status:?Normal attention, orientation, memory and affect.? Cranial Nerves:?Pupils are equal, round and reactive to light. External occular muscles are intact. Visual vergara are full. Face is symmetrical. Facial sensations are normal. Tongue is midline. Palate elevates symmetrically. Shoulder shrugging is normal. Hearing to bedside conversation is normal. Motor Examination:?DTRs trace. Sensory Exam:?....? Coordination:?No ataxia,?no titubation.? Gait Exam: Cautious. Cerebellar Signs:?[id number] is okay. Extrapyramidal System:?No tremor, rigidity with normal facial expressions.? Pronator Drift:?Not present.? Involuntary Movements:?No tremors seen.? Speech:?Normal.? Results Reviewed Results Reviewed: MRI brain W&WO at [facility] in 04/2025: Moderate atrophy, MVD MRI brain WO at [facility] in Mar 2023: Multiple small b/l ischemic lesions MRI brain WO at [facility] in Sep 2021: multiple distinct b/o small embolic looking ischemic infarcts Routine EEG at [facility] in Sep 2021: intermittent left temp theta slowing [place] [facility] [place]: MVD, s/p R CEA, 50% L stenosis, advanced cervical spondylosis, left frontal osteoma, 1.3 cm EKG [place] [facility] [place]: NSR. Assessment & Plan Assessment & Plan (1) Migraine equivalent syndrome: Code(s): G43.109 - Migraine with aura, not intractable, without status migrainosus Category: Medical Plan: CD of MRI brain done at [facility] in 04/[address] Guajardo. Continue topiramate 25mg 1 tablet twice a day. Follow up in 6 months or sooner as needed. (2) Migraine with aura: Code(s): G43.109 - Migraine with aura, not intractable, without status migrainosus Category: Medical Qualifiers: Status migrainosus presence: without status migrainosus Intractability: not intractable Qualified Code(s): G43.109 - Migraine with aura, not intractable, without status migrainosus Plan . Coding Level of Care Code Est Pt Level 4 (95740) Diagnoses Migraine equivalent syndrome G43.109 Migraine with aura and without status migrainosus, not intractable G43.109 Status migrainosus presence: without status migrainosus Intractability: not intractable
--- OUTSIDE RECORDS SUMMARY | 2025-06-21 12:29 | XMS_ITS | Clinical Summary ---
Author Organization [address] Address [address] [place] [phone] Phone Care Team Providers Care Group Underwriter Name Role Phone Karon Dave MD Primary Care Provider [phone] Allergies Active Allergy Reactions Criticality Noted Date Comments Amlodipine Swelling Medium 01/11/2016 Side effect Azithromycin 03/31/2013 Possibly caused vasculitis Ciprofloxacin 03/31/2013 Possibly caused vasculitis Clarithromycin 03/31/2013 Possibly caused vasculitis Clindamycin 03/31/2013 Possibly caused vasculitis Hydrocodone-Acetaminophe n Nausea And Vomiting 09/30/2005 Morphine Sulfate 09/11/2020 Penicillins Rash 09/30/2005 Sulfamethoxazole-Trimeth oprim Swelling Medium 06/18/2010 Tobramycin 03/31/2013 Possibly caused vasculitis Medications topiramate (TOPAMAX) 25 mg tablet Take 1 tablet (25 mg total) by mouth 2 (two) times a day. 04/04/20 23 Active nitroglycerin (NITROSTAT) 0.[address] 1 tablet (0.4 mg total) under the tongue every 5 (five) minutes if needed for chest pain. 12/06/19 23 Active methenamine hippurate (HIPREX) 1 gram tablet Take 1 g by mouth 2 Times Daily. 08/27/19 22 Active aspirin 81 mg chewable tablet Chew 1 tablet (81 mg total) 1 (one) time each day. 12/08/19 19 Active potassium chloride (KLOR-CON) 10 mEq CR tablet Take 1 tablet (10 mEq total) by mouth 1 (one) time each day. 90 tablet 1 11/30/19 25 Active hydroCHLOROthi azide 12.5 mg tablet Take 1 tablet (12.5 mg total) by mouth 1 (one) time each day. 90 each 1 03/07/20 25 Active lisinopril (PRINIVIL,ZEST RIL) 40 mg tablet Take 1 tablet (40 mg total) by mouth at bedtime. 90 tablet 1 06/07/20 25 Active metoprolol tartrate (LOPRESSOR) 50 mg tablet Take 1 tablet (50 mg total) by mouth every 12 (twelve) hours. 180 tablet 1 06/07/20 25 Active atorvastatin (LIPITOR) 80 mg tablet Take 1 tablet (80 mg total) by mouth at bedtime. 90 tablet 1 06/07/20 25 Active ezetimibe (ZETIA) 10 mg tablet Take 1 tablet (10 mg total) by mouth at bedtime. 90 tablet 1 06/07/20 25 Active carBAMazepine (TEGretol) 100 mg chewable tablet CHEW 1 TABLET (100MG) BY MOUTH AT BEDTIME 05/20/20 25 Active nystatin-triam cinolone (MYCOLOG II) ointment Apply topically 1 (one) time each day. 15 g 1 06/09/20 25 Active LORazepam (ATIVAN) 0.5 mg tablet TAKE 1 TABLET BY MOUTH EVERY DAY NEEDED ANXIETY 09/29/19 24 025 Discontinued(Ex pired) metoprolol tartrate (LOPRESSOR) 50 mg tablet TAKE 1 TABLET BY MOUTH TWICE DAILY 180 tablet 1 12/09/19 25 025 Discontinued lisinopril (PRINIVIL,ZEST RIL) 40 mg tablet TAKE 1 TABLET BY MOUTH ONCE DAILY 90 tablet 1 12/09/19 25 025 Discontinued ezetimibe (ZETIA) 10 mg tablet Take 1 tablet (10 mg total) by mouth 1 (one) time each day. 90 tablet 1 12/21/19 25 025 Discontinued atorvastatin (LIPITOR) 80 mg tablet Take 1 tablet (80 mg total) by mouth 1 (one) time each day. 90 tablet 1 01/03/20 25 025 Discontinued nystatin-triam cinolone (MYCOLOG II) ointment Apply topically 1 (one) time each day. 15 g 1 02/19/20 25 025 Discontinued(Re order) Active Problems Problem Noted Date Diagnosed Date Stage 3a chronic kidney disease (CMS/HCC V24, CM S/HCC V28) 12/23/2023 Assessment & [...] times 2, Right CEA 7.20 Atherosclerosis of [place] co ronary artery of [place] heart without angina pectoris 02/15/2008 Overview (05/05/2024): [...] Encounters Date Type Department Care Team Description 04/25/2025 2:47 PM EDT - 04/25/2025 11:59 PM EDT Hospital Encounter Radiology Department - [address] [phone] Trigeminal neuralgia Discharge Disposition: Home or Self Care 04/11/2025 11:15 AM EDT Office Visit Adult Medicine [address] [phone] Alessandra Jacobsen PA Left-sided face pain (Primary Dx); Refused pneumococcal vaccination from Last 3 Months Immunizations Immunization Administration [...] Surgery Date Site/Laterality Comments OTHER SURGICAL HISTORY 2003 DISKECTOMY LUMBAR SINGLE SP COLONOSCOPY 07/16/2004 negative [...] obtained. No colon cancer screening necessary until 2014. Diverticulosis of colon (wit hout mention of hemorrhage) 05/15/2006 refer to chronic blood loss anemia problem. 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 For example, director child or elderly care for an older adult? [...] - - Weight 61.7 kg (136 lb) 04/25/2025 2:11 PM EDT Height 166.4 cm (5' 5.5 ) 04/11/2025 11:07 AM ED T Body Mass Index 22.29 04/11/2025 11:07 AM EDT Plan of Treatment Upcoming Encounters Date Type Department Care Team (Late st Contact Info) Description 06/28/2025 11:00 AM EST Office Visit Adult Medicine [facility] [address] [place] [phone] Karon Dave MD [address] [place] [phone] Health Maintenance Due Date Last Done Comments [...] Procedure Name Priority Date/Time Associated Diagnosis Comments MR BRAIN WO AND W CONTRAST Routine 04/25/2025 4:09 PM EDT Trigeminal neuralgia BASIC METABOLIC PANEL Routine 09/16/2024 2:26 PM EST Stage 3a chronic kidney disease (CMS/HCC V24, CMS/HCC V28) LIPID PANEL WITH REFLEX TO DIRECT LDL Routine 09/16/2024 2:26 PM EST Other hyperlipidemia DXA BONE DENSITY STUDY 1+ SITS AXIAL SKEL Routine 07/10/2022 3:03 PM EST Age-related osteoporosis without current pathological fracture from Last 3 Months or Most Recently Relevant to Health Maintenance Results * MR Brain wo and w Contrast (04/25/2025 4:09 PM EDT) Anatomical Region Laterality Modality Head and Neck Magnetic Resonan ce 05/04/2025 12:4 9 AM EDT Narrative 05/04/2025 1:15 AM EDT MRI of the head and the terminal nodules. History left facial pain. Examination was performed on 1.5 Ginny magnet without administration of intravenous contrast. Postcontrast study was performed after administration of 12 mL of DOTAREM. Examination was performed on 04/25/2025. Submitted for interpretation on 05/04/2025. The trigeminal nerves were visualized mostly on high-resolution gradient echo axial images. There are vascular structures in contact with cisternal portions of the trigeminal nerves bilaterally. It is better appreciated on axial image #26 series 1001. No definite deviation or deformity of the trigeminal nerve roots are identified. There is sulcal ventricular prominence, most likely age related atrophic changes. There is no evidence of midline shift, extra or intra-axial blood fluid collections. There is no visible masses or mass effect in the brain and cerebellum. There is no focal areas of restricted diffusion or abnormal enhancing lesions. Multiple foci of increased FLAIR signal in the subcortical, deep and periventricular white matter of both cerebral hemispheres. It is most likely due to chronic small vessel ischemia. Mild mucosal thickening was noted in the ethmoid air cells. Mastoid processes are aerated. CONCLUSIONS: Probably age related atrophic changes. Vascular structures in contact with bilateral trigeminal nerves which could be symptomatic. Nonspecific white matter signal abnormalities in both cerebral hemispheres most likely due to chronic small vessel ischemia. -------- FINAL REPORT -------- Dictated By: Sammie Ann Dictated Date: 05/04/2025 00:49 ET Assigned Physician: Sammie Ann Reviewed and Electronically Signed By: Sammie Ann Signed Date: 05/04/2025 01:15 ET Workstation ID: [id number] Transcribed By: Self Edit Transcribed Date: 05/04/2025 00:49 ET Procedure Note Sammie Ann MD - 05/04/2025 MRI of the head and the terminal nodules. History left facial pain. Examination was performed on 1.5 Ginny magnet without administration ofintravenous contrast. Postcontrast study was performed afteradministration of 12 mL of DOTAREM. Examination was performed on 04/25/2025. Submitted for interpretation on05/04/2025. The trigeminal nerves were visualized mostly on high-resolution gradientecho axial images. There are vascular structures in contact with cisternalportions of the trigeminal nerves bilaterally. It is better appreciated onaxial image #26 series 1001. No definite deviation or deformity of thetrigeminal nerve roots are identified. There is sulcal ventricular prominence, most likely age related atrophicchanges. There is no evidence of midline shift, extra or intra-axial bloodfluid collections. There is no visible masses or mass effect in the brainand cerebellum. There is no focal areas of restricted diffusion or abnormal enhancinglesions. Multiple foci of increased FLAIR signal in the subcortical, deep andperiventricular white matter of both cerebral hemispheres. It is mostlikely due to chronic small vessel ischemia. Mild mucosal thickening was noted in the ethmoid air cells. Mastoidprocesses are aerated. CONCLUSIONS: Probably age related atrophic changes. Vascular structures incontact with bilateral trigeminal nerves which could be symptomatic.Nonspecific white matter signal abnormalities in both cerebral hemispheresmost likely due to chronic small vessel ischemia. -------- FINAL REPORT -------- Dictated By: Sammie Ann Dictated Date: 05/04/2025 00:49 ET Assigned Physician: Sammie Ann Reviewed and Electronically Signed By: Sammie Ann Signed Date: 05/04/2025 01:15 ET Workstation ID: [id number] Transcribed By: Self Edit Transcribed Date: 05/04/2025 00:49 ET Jahaira Jain NP IM MRI PROCEDURES Final Result * Lipid panel with reflex to direct LDL (09/16/2024 2:26 PM EST) Cholesterol 134 0 - 200 mg/dL LAB CHEMISTRY METHOD 09/16/2024 7:17 PM [facility] Triglycerides 126 0 - 150 mg/dL LAB CHEMISTRY METHOD 09/16/2024 7:17 PM [facility] HDL 52 >=40 mg/dL LAB CHEMISTRY METHOD 09/16/2024 7:17 PM [facility] LDL Calculated 57 0 - 100 mg/dL LAB CHEMISTRY METHOD 09/16/2024 7:17 PM [facility] VLDL Cholesterol Warren 25.2 mg/dL LAB CHEMISTRY METHOD 09/16/2024 7:17 PM [facility] Non HDL Chol. (LDL+VLDL) 82 <145 mg/dL LAB CHEMISTRY METHOD 09/16/2024 7:17 PM [facility] Chol/HDL Ratio 2.6 0.0 - 4.4 LAB CHEMISTRY METHOD 09/16/2024 7:17 PM [facility] Blood Venous blood specimen / Unknown Venipuncture / Unknown 09/16/2024 2:26 PM EST 09/16/2024 2:27 PM EST us Karon Dave MD LAB BLOOD ORDERABLES Final Resul t [facility] [address] [place] [address], [place] [phone] * (ABNORMAL) Basic metabolic panel (09/16/2024 2:26 PM EST) Sodium 144 133 - 145 mmol/L LAB CHEMISTRY METHOD 09/16/2024 7:16 PM [facility] Potassium 3.5 3.5 - 5.5 mmol/L LAB CHEMISTRY METHOD 09/16/2024 7:16 PM [facility] Chloride 109 96 - 110 mmol/L LAB CHEMISTRY METHOD 09/16/2024 7:16 PM [facility] CO2 26 21 - 32 mmol/L LAB CHEMISTRY METHOD 09/16/2024 7:16 PM [facility] Anion Gap 9 3 - 11 LAB CHEMISTRY METHOD 09/16/2024 7:16 PM [facility] Glucose 77 70 - 100 mg/dL LAB CHEMISTRY METHOD 09/16/2024 7:16 PM [facility] BUN 25 5 - 25 mg/dL LAB CHEMISTRY METHOD 09/16/2024 7:16 PM [facility] Creatinine 1.00 0.50 - 1.10 mg/dL LAB CHEMISTRY METHOD 09/16/2024 7:16 PM [facility] eGFR 55(L) >=60 mL/min/1. 73m2 LAB CHEMISTRY METHOD 09/16/2024 7:16 PM [facility] Comment:Calculation based on the Chronic Kidney Disease Epidemiology Collaboration (CKD-EPI) equation refit without adjustment for race. BUN/Creatinine Ratio 25.0 LAB CHEMISTRY METHOD 09/16/2024 7:16 PM EST [facility] Calcium 9.8 8.5 - 10.5 mg/dL LAB CHEMISTRY METHOD 09/16/2024 7:16 PM EST [facility] Blood Venous blood specimen / Unknown Venipuncture / Unknown 09/16/2024 2:26 PM EST 09/16/2024 2:27 PM EST us Karon Dave MD LAB BLOOD ORDERABLES Final Resul t [facility] [address] [place] [address], [place] [phone] * DXA BONE DENSITY STUDY 1+ SITS AXIAL SKEL (07/10/2022 3:03 PM EST) Anatomical Region Laterality Modality Bone Densitometr y 03/11/2022 4:07 PM EDT Narrative 07/10/2022 3:18 PM EST [...] (World Health Organization Fracture Risk Assessment) [facility] of [facility] Medicine recommends using National [...] alternative screening schedule based on butch Camacho., [facility] August 08, 2011 for patients with osteopenia [...] (World Health Organization Fracture Risk Assessment) [facility] of Internal Medicine recommendsusing National Osteoporosis [...] alternative screening schedule based on butch Camacho., NEJMJanuary 2011 for patients with osteopenia (based on hip BMD T-score) is as follows: * advanced osteopenia (T scores -2.00 to -2.49), BMD testing every year * moderate osteopenia (T scores -1.50 to -1.99), BMD testing every 5years mild osteopenia or normal BMD (T scores -1.50 and higher), BMD testingevery 15 years Karon Dave MD IM DXA PROCEDURES Final Result from Last 3 Months or Most Recently Relevant to Health Maintenance Insurance [employer] Care Teams Group Underwriter Relationship Specialty Start Date End Date Karon Dave MD [address] [place] [phone] PCP - General Internal Medicine 01/19/20
== END 2025-06-21 11:48 | disposition home or self-care (01) ==
LOC: HO.HSM 10:43
PROVIDERS: PCP Internal Medicine; Referring Provider Internal Medicine; Visit Provider Registered Nurse
DX: G43.109 Migraine with aura, not intractable, without status migrainosus (principal)
CPT/HCPCS: 99214

== ENCOUNTER → 2025-06-21 10:42 | Outpatient (BNVA) | payer MEDICARE, SELFPAY | PROVIDERS: PCP Internal Medicine; Referring Provider Internal Medicine; Visit Provider Registered Nurse | DX: G43.109 Migraine with aura, not intractable, without status migrainosus (principal); Z79.899 Other long term (current) drug therapy | CPT/HCPCS: 99212 ==